=== PATIENT | female | born 1935 | race Caucasian/White ===

== ENCOUNTER 2017-02-10 16:28 | Inpatient (IN) | payer OTHER ==
[~2017-02-10] VITALS: Ht 167.6 cm; Wt 63.5 kg
--- NOTE | ~2017-02-10 | DS ---
[place], [place] DISCHARGE SUMMARY NAME: ARNOLD FALLON UNIT #: [id number] ROOM: 427 DOCTOR: BARBY GARCIA MD BIRTHDATE: [birth year] DOS: 02/12/2017 DISCHARGE DIAGNOSES: 1. Severe peripheral arterial disease, which is diffuse, patient going for an arteriogram to [facility] with Dr. Grajeda. 2. Venous stasis and cellulitis involving both lower extremities. 3. Old age, advanced disability and failure to thrive. 4. Benign essential hypertension. 5. Iron deficiency anemia. 6. Gastroesophageal reflux disease and esophagitis. 7. Mixed hyperlipidemia. HOSPITAL COURSE: The patient presented to the Emergency Department with increased redness and pain in her legs, which was finally considered to be related to drug rash and patient also has venous stasis dermatitis and exfoliative skin in her lower extremities. The patient was evaluated by Infectious Disease specialist for this. Severe peripheral arterial disease, for which patient being taken to [facility] by Dr. Grajeda for an arteriogram study for tomorrow. Old age, advanced disability and failure to thrive with difficulty with ambulation. The patient worked with physical therapy. Benign essential hypertension with controlled blood pressures. Iron deficiency anemia. The patient continued on iron supplements. Anemia with hemoglobin of 9.4. No leukocytosis on CBC. Blood cultures were negative. DISCHARGE MANAGEMENT: The patient is being transferred to [facility] under care of Dr. Grajeda for arterial studies for her severe peripheral arterial disease. DISCHARGE MEDICATIONS: Lamisil cream 1% b.i.d., ____ 250 mg daily for 7 days, Pepcid 40 mg a day, Coreg 25 mg b.i.d., Tylenol p.r.n., omeprazole 40 mg a day, hydroxyzine 25 mg 3 times a day, iron 325 mg b.i.d., hydrochlorothiazide 25 mg a day, lisinopril 20 mg a day, Aquaphor ointment to the skin of both lower extremities. [place], [place] DISCHARGE SUMMARY NAME: ARNOLD FALLON UNIT #: [id number] ROOM: 427 DOCTOR: BARBY GARCIA MD BIRTHDATE: [birth year] BARBY GRACIA MD CM:MANDY [id number] BARBY GARCIA MD 02/13/17 2154 interface
--- NOTE | ~2017-02-10 | PR ---
[place], [place] PROGRESS NOTE NAME: ARNOLD FALLON UNIT #: [id number] ROOM: 427 DOCTOR: BARBY GARCIA MD BIRTHDATE: [birth year] DOS: 02/12/2017 SUBJECTIVE: The patient is feeling better. OBJECTIVE: GENERAL APPEARANCE: The patient is alert and oriented x 3, in no visible distress. VITAL SIGNS: Blood pressure 110/54, heart rate of 83 beats per minute, afebrile. HEENT AND NECK: Exam within normal limits. CARDIOVASCULAR SYSTEM: Heart rate is regular in rate and rhythm. S1 and S2 normally audible. LUNGS: Clear to auscultation. ABDOMEN: Soft, nontender. No obvious organomegaly. Bowel sounds are present. EXTREMITIES: Bilateral erythema involving both legs and thighs with extensive peeling of the skin. IMPRESSION: 1. The patient with bilateral cellulitis involving both lower extremities, being treated with IV Ancef. I am getting Infectious Disease and Surgical consults and Wound Care is also following. 2. Old age, advanced disability and failure to thrive. The patient is waiting to be transferred to [facility] facility. 3. Benign essential hypertension, being treated. The patient was on lisinopril. The blood pressures are being monitored. 4. Iron deficiency anemia, treated with supplements. Hemoglobin at 9.2 . BARBY GARCIA MD CM:PNTRANS [id number] BARBY GARCIA MD 02/12/17 1539 interface
--- NOTE | ~2017-02-10 | WRIGHTHP ---
[place], [place] PATIENT HISTORY AND PHYSICAL EXAM NAME: ARNOLD FALLON [facility] #: [id number] UNIT #: [id number] ROOM: 427 DOCTOR: BARBY GARCIA MD BIRTHDATE: [birth year] DOS: HISTORY OF PRESENT ILLNESS: The patient is a 81-year-old female with a past medical history of; 1. Benign essential hypertension. 2. Mixed hyperlipidemia. 3. Gallstones. 4. Anemia of chronic disease. The patient presented to the Emergency Department with increasing pain and redness in her legs. The patient says she lives by herself with some help and her sister helps her. The patient was found to have bilateral cellulitis in both legs with some skin changes and recommended for admission and further management. The patient also had leukocytosis. After admission, the patient has the same complaints. No chest pain, no shortness of breath, no GI or urinary symptoms. REVIEW OF SYSTEMS: LUNGS: No increasing shortness of breath or wheezing. GASTROINTESTINAL: No nausea, vomiting, diarrhea or constipation. CARDIOVASCULAR: No palpitations or chest pains. FAMILY HISTORY: Noncontributory. ALLERGIES: No known drug allergies. HOME MEDICATIONS: Lisinopril, hydrochlorothiazide, ____, amlodipine, hydroxyzine, omeprazole, Coreg, ____ and Lamisil. PHYSICAL EXAMINATION: GENERAL: Alert and oriented x 3, very weak. HEENT AND NECK: Extraocular movements are intact. Sclerae are anicteric. Oral mucosa is moist and clean. No obvious facial weakness. Neck is supple without any lymphadenopathy. No thyromegaly. No JVD. No carotid arterial bruits. LUNGS: Clear to auscultation. No wheezing. No rhonchi. CARDIOVASCULAR SYSTEM: Heart rate is regular in rate and rhythm. S1 and S2 normally audible. No significant murmur or any other abnormal cardiac sounds. ABDOMEN: Soft, nontender. No obvious organomegaly. Bowel sounds are present. No obvious herniation. EXTREMITIES: Bilateral erythema and redness and peeling skin on both legs going all the way up into the thighs. CENTRAL NERVOUS SYSTEM: Alert and oriented x 3. Cranial nerves II-XII are intact. Speech is normal. The patient is able to move all extremities. Normal muscle strength. Deep tendon reflexes are equal on both sides. Plantars were downgoing. IMPRESSION AND PLAN: 1. Bilateral lower extremity cellulitis, to be treated with IV Ancef and followed by Podiatry and wound care nurse. 2. Old age with advance disability and failure to thrive. The patient to work with physical therapy and also go for group home facility for continued [place], [place] PATIENT HISTORY AND PHYSICAL EXAM NAME: ARNOLD FALLON UNIT #: [id number] ROOM: [facility] DOCTOR: JOSE MERCADO,BRABY Tate BIRTHDATE: [birth year] treatment. 3. Benign essential hypertension. I will continue lisinopril/hydrochlorothiazide along with amlodipine and monitor blood pressures. 4. Iron deficiency anemia. The patient to be continued on iron supplements. BARBY GARCIA MD CM:HISPHYS:PATIENT HISTORY AND PHYSICAL EXAMINATION 31 11 BARBY GARCIA MD 02/11/171910 interface
--- NOTE | ~2017-02-10 | PR ---
[place], [place] PROGRESS NOTE NAME: ARNOLD FALLON [facility] #: [id number] UNIT #: [id number] ROOM: 427 DOCTOR: LIZZY DOOLEY DPM BIRTHDATE: [birth year] DOS: 02/13/2017 SUBJECTIVE: The patient was seen for followup of cellulitis of lower legs. OBJECTIVE: The arterial studies revealed significant peripheral arterial disease with waveform analysis demonstrating high-grade stenotic inflow stenosis, diffuse infiltrate, angle arteriosclerosis without focal discrete high grade stenosis. Clinically, there is decreased erythema. There is venous stasis bilateral lower legs still noted. Pedal pulses nonpalpable. The paronychia, fourth right toe is stable. ASSESSMENT: Paronychia fourth right toe, peripheral vascular disease with stenosis and venous insufficiency. PLAN: Evaluation and management. I consult ____ for vascular consultation. No compressive dressings will be applied to the leg due to the severe PVD. Continue Bactroban dressing to the fourth right toe and the patient will be seen for followup. LIZZY DOOLEY DPM CM:DOUG [id number] LIZZY DOOLEY DPM 02/13/17 1434 interface
--- NOTE | ~2017-02-10 | CON ---
[place], [place] REPORT OF CONSULTATION NAME: ARNOLD FALLON UNIT #: [id number] ROOM: 427 DOCTOR: LIZZY DOOLEY DPM BIRTHDATE: [birth year] DOS: 02/11/2017 SUBJECTIVE: The patient presents with chief complaint of elongated thickened nails of both feet, causing pain, cellulitis and increased swelling of both lower extremities which has been noted over the past several weeks. ALLERGIES: Denied. No known allergies. PREVIOUS SURGICAL HISTORY: None. SOCIAL HISTORY: Denies illicit drug use, smoking or alcohol. MEDICAL HISTORY: Cellulitis of both legs, dehydration, malnutrition, lower extremity examination, pedal pulses nonpalpable bilateral lower extremity, decreased hair growth bilateral, decreased skin temperature, bilateral foot extremely elongated, thickened, crumbly, yellow painful nails 1 through 5 bilateral foot with the nails on the right foot 3-5 inches in length and incubated on to the surrounding digits. There is subungual drainage noted to the fourth right toe upon nail debridement with discomfort. No deep sinus tract noted. There is venous stasis, erythema, edema both lower extremities noted with pain. ASSESSMENT: PVD, venous stasis, cellulitis, venous insufficiency bilateral lower leg, onychomycosis 1-5 bilateral, perionychia fourth right toe, onychocryptosis, onychogryphosis of the nails bilateral. PLAN: Evaluation and management. Debrided the nails 1 through 5 of both feet, apply Bactroban and dressing daily to the nail bed fourth right toe. Ordered both arterial and venous Doppler bilateral lower extremity before proceeding with any compressive dressing such as Unna boot to rule out DVT or underlying PVD, which may make the patient a known candidate for Unna boot application. We will see the patient again tomorrow for followup and review of the testing. LIZZY DOOLEY DPM CM:CONSTR:REPORT OF CONSULTATION 1238 02/12/17 0010 interface
--- NOTE | ~2017-02-10 | PR ---
[place], [place] PROGRESS NOTE [id number] UNIT #: [id number] ROOM: 427 DOCTOR: YOKO MORA PRIYA BIRTHDATE: [birth year] DOS: 02/12/2017 SUBJECTIVE: The patient is followed for increased swelling in bilateral lower extremities with cellulitis. ALLERGIES: No known drug allergies. PAST SURGICAL HISTORY: None. PAST MEDICAL HISTORY: Cellulitis, dehydration, malnutrition. LOWER EXTREMITY PHYSICAL EXAMINATION: VASCULAR: DP and PT pulses are nonpalpable bilaterally. Decreased hair growth noted to bilateral lower extremities. Mild pitting edema noted in bilateral lower extremities. There is substantial erythema noted to bilateral lower extremities. NEUROLOGIC: Protective sensation intact to bilateral lower extremities. Epicritic sensation intact in bilateral lower extremities. Decreased muscle tone noted to bilateral lower extremities. MUSCLE STRENGTH: 3/5 muscle strength noted to bilateral lower extremities. Mild pain on palpation noted in bilateral lower extremities. DERMATOLOGIC: There is diffuse erythema noted to bilateral lower extremities. There also appears to be a flaky dry skin noted to bilateral lower extremities. No open wounds noted. No interdigital macerations. ASSESSMENT: Peripheral vascular disease, venous stasis cellulitis, venous insufficiency to bilateral lower extremities. PLAN: Reviewed ultrasounds. The venous ultrasound demonstrated no DVT noted to the bilateral lower extremities. Arterial duplex demonstrated severe stenosis to bilateral lower extremities. Dr. Grajeda has been consulted for Vascular Surgery to evaluate. We will wait upon vascular recommendations prior to wound care recommendations. [place], [place] PROGRESS NOTE NAME: V[facility]YLARNOLD Hamilton [id number] UN[facility] #: [id number] ROOM: 427 DOCTOR: YOKO MORA PRIYA BIRTHDATE: [birth year] CHHAYA MORA DPM CM:PNTRANS 25 [phone] CHHAYA MORA DPM 02/13/17 0421 interface
--- NOTE | ~2017-02-10 | CON ---
[place], [place] REPORT OF CONSULTATION NAME: ARNOLD FALLON UNIT #: [id number] ROOM: 427 DO[facility] BIR[facility]: [birth year] DOS: PRIMARY CARE PHYSICIAN: Dr. King. SUBJECTIVE: Case discussed with Dr. Gaffney and Dr. Dooley. Dr. Dooley and Dr. Gaffney recommended for peripheral arteriogram and possible revascularization to improve the ____ in both lower extremities and marked diminished perfusion in lower extremities both with diffuse disease. Report is enclosed. The patient came with bilateral cellulitis with discoloration of lower extremities below the knee. Apparently, it is going on for the last several weeks. So probably, Richardson classification 5 with tissue damage. The drainage, the skin wound and discoloration continues to progress ____ came in and no fever, no chills. The patient also has history of gastroesophageal reflux disease, iron deficiency anemia, and hypertension. Hemoglobin is 9.4. SOCIAL HISTORY: The patient does not smoke or drink. No alcohol or drug abuse. ALLERGIES: The patient does not have any allergies. The patient has been on lisinopril, omeprazole, carvedilol, iron, amlodipine, and the patient will have baby aspirin and Plavix going forward and also discontinue amlodipine because of peripheral edema and her skin changes and put her on statin because of diffuse atherosclerosis. REVIEW OF SYSTEMS: HEENT: Unremarkable. CARDIOVASCULAR: As described. Now denies any chest pain but peripheral arterial disease consistent with edema. Denies any shortness of breath. No syncope. PHYSICAL EXAMINATION: VITAL SIGNS: Blood pressure 101/50, afebrile, heart rate is 75. NECK: No jugular venous distention. LUNGS: Diminished breath sounds in bases. HEART: S1, S2 regular. ABDOMEN: Soft. SKIN: Diffuse changes in the skin of lower extremities with discharge from the skin and the wound, both thighs. LABORATORY DATA: Electrolytes were unremarkable. Sodium 130, low. Creatinine is 1.3, probably chronic kidney disease stage 3 with BUN 49 and GFR is 39 markedly diminished. Hemoglobin is 9.1, recent one. No DVT in the lower extremities, so the changes in the skin in the lower extremities is unrelated to the deep vein thrombosis, mostly peripheral arterial disease. Could not get the ankle brachial index now, marked diminished flow below the popliteal and also in the outlet vessels. Inlet vessels are fairly good but outlet vessels have the worst flow and severe peripheral arterial disease considered. No discrete lesions could be described. No pedal or posterior tibial pulses. Popliteal pulses also not optimal but both the femoral pulses are felt. [place], [place] REPORT OF CONSULTATION NAME: ARNOLD FALLON UNIT #: [id number] ROOM: 427 DOCTOR: STEPH MERCADO [facility] BIRTHDATE: [birth year] DIAGNOSIS: Severe peripheral arterial disease, outlet vessels. I have discussed with the patient options, procedures, complications, morbidity, and mortality risk explained for angiogram revascularization. We will get the landscaper get involved also and optimize the medical therapy. We will continue the current therapy. Thank you very for asking me to see the patient. I will follow the patient. JUSTINO CHOI MD CM:CONSTR:REPORT OF CONSULTATION 1709 02/14/17 0755 interface LIZZY DOOLEY DPM, BARBY GAFFNEY MD and KARLOS KING
[2017-02-10 16:37] VITALS: BP 119/50
--- NOTE | 2017-02-10 17:18 | NUR ---
THE BANDAGES WERE REMOVED FOR VIEWING OF THE LEGS AND FEET
[2017-02-10 17:24] LABS: BASO % 0.2 % (0.0-1.0); EOS # 0.3 10*3/uL (0.0-0.4); EOS % 2.6 % (1.0-4.0); HEMATOCRIT 26.8 % (37.0-47.0); HEMOGLOBIN 9.1 g/dl (12.0-16.0); LYMPH # 1.2 10*3/uL (1.3-4.4); LYMPH % 9.8 % (27.0-41.0); MEAN CELL VOLUME 90.2 fl (81.0-99.0); MEAN CORPUSCULAR HGB 30.6 pg (27.0-31.0); MEAN PLATELET VOLUME 8.8 fl (9.6-12.3); MONO # 0.9 10*3/uL (0.1-1.0); MONO % 7.9 % (3.0-9.0); NEUT # 9.3 10*3/uL (2.3-7.9); PLATELET COUNT AUTOMATED 290 10*3/uL (130-400); RED BLOOD COUNT 2.97 10*6/uL (4.10-5.10); RED CELL DISTRI WIDTH 13.8 % (0-14.5); WHITE BLOOD COUNT 11.7 10*3/uL (4.8-10.8)
[2017-02-10 17:39] LABS: ALBUMIN 2.8 gm/dl (3.1-4.5); CREATININE 1.32 mg/dL (0.55-1.02); MAGNESIUM 2.5 mg/dL (1.5-2.1); POTASSIUM 3.9 mmol/L (3.5-5.1); TOTAL PROTEIN 7.1 gm/dL (6.4-8.2)
[2017-02-10 18:12] LABS: BILIRUBIN NEGATIVE (NEGATIVE); BLOOD NEGATIVE (NEGATIVE); CLARITY CLEAR (CLEAR); COLOR YELLOW (YELLOW); GLUCOSE NEGATIVE (NEGATIVE); KETONE NEGATIVE (NEGATIVE); LEUKO ESTERASE NEGATIVE (NEGATIVE); NITRITE NEGATIVE (NEGATIVE); PH 5.5 (5.0-9.0); UROBILINOGEN 0.2 E.U./dl (0.2-1.0)
[2017-02-10 18:27] LABS: WBC 0-2 wbc/hpf (0-5)
[2017-02-10 18:35] VITALS: BP 112/50
--- NOTE | 2017-02-10 18:41 | NUR ---
THE CLINDAMYCIN WAS NOT AVAILABEL IN THE ED PYXIX. THE PATIENT WAS TAKEN TO THE FLOOR AND THE PHARMACY NOTFIEID THEY NEEDED THE MEDICATION. RECIEVING NURSE NOTIFIED
[2017-02-10 18:43] VITALS: BP 140/56
--- NOTE | 2017-02-10 18:45 | NUR ---
A 81, admitted to , under the services of Dr. JOSE MERCADO,BARBY Tate with a diagnosis of CELLULITIS. Chief complaint is CELLULITIS OF BLE. Patient arrived via CART WITH RN from ER. Monitor applied. Initial assessment completed. Vital signs taken and recorded. DR. JOSE MERCADO,BARBY Tate notified of admission to the unit. Orders received. See assessment for past medical history, medications and allergies. Patient and/or family oriented to unit. [facility] visitation policy reviewed. Clothing/patient valuable form completed. DUGLAS ORELLANA
[2017-02-10] MEDS ORDERED: LISINOPRIL20 MG PO (18:59)
[2017-02-10] MEDS ORDERED: HYDR25T PO (19:00)
[2017-02-10] MEDS ORDERED: OMEPRAZOLE40 MG PO (19:01)
[2017-02-10] MEDS ORDERED: COREG25 MG PO (19:02)
[2017-02-10] MEDS ORDERED: FEROSUL325 MG PO (19:02)
[2017-02-10] MEDS ORDERED: AMLODIPINE BESY10 MG PO (19:03)
--- NOTE | 2017-02-10 19:03 | NUR ---
MEDS VERIFIED WITH HOME MED LIST
--- NOTE | 2017-02-10 20:02 | NUR ---
DR. DOOLEY CONSULT PHONED IN FOR CELLULITITS TO LEGS AND TOE NAILS.
--- NOTE | 2017-02-10 20:02 | NUR ---
DR. HULL CONSULT PHONED IN, SEE NEW ORDERS.
[2017-02-10 20:10] VITALS: BP 116/55
[2017-02-11] VITALS: BP 139/63
--- NOTE | 2017-02-11 06:13 | NUR ---
PRN TYLENOL GIVEN FOR PAIN RATED 8/10 IN ANKLES AND LOWER LEGS. WILL MONITOR
--- NOTE | 2017-02-11 06:15 | NUR ---
PATIENT CANNOT SWALLOW LARGE PILLS. PREFERS THEM CRUSHED. DID NOT SHOW ANY SIGNS OF DISCOMFORT DURING MORNING MED PASS, JUST STATED HOW SHE TAKES LARGE PILLS.
[2017-02-11 08:00] VITALS: BP 101/50
--- NOTE | 2017-02-11 08:30 | NUR ---
Behavioral Health Professional in to talk to patient. Patient states lives at HOME IN [facility] ALONE with . There are 0 steps in the home. Physician: DR KING Pharmacy: [facility] health services: NONE SISTER DOES WOUND CARE ON HER LEGS Patient's level of ADLs: MODERATE ASSIST Patient has working utilities: YES DME: [facility] Follow-up physician's appointment after d/c: PREFERS TO MAKE HER OWN Does patient want to access PORTAL?: Discharge plan . CRISTIAN CHEUNG PT AGREES TO SNF STAY AND CHOOSES [facility] AND [facility].
[2017-02-11 12:00] VITALS: BP 88/46
--- NOTE | 2017-02-11 14:08 | NUR ---
PATIENT GIVEN PRN TYLENOL FOR LOWER LEG PAIN RATING 4/10
--- NOTE | 2017-02-11 14:15 | NUR ---
OT EVALUATION COMPLETED AT BS. OT MODERATE COMPLEXITY, DETERMINED BY CHART REVIEW AND EVALUATION.
--- NOTE | 2017-02-11 14:28 | NUR ---
PHYSICAL THERAPY PAtient evaluated on 4, full evaluation to follow. Continue with PT as per plan of care with fall, wounds to (b)LE and acute debilty as well as mod (A)+ for molility precautions. Will require SNF for impaired mobility in order to return to home alone at [facility]. PAtient is high complexity via chart review, tests and evaluation: 62071. Thank you for this referral. evangelina Polk,PT
[2017-02-11 16:00] VITALS: BP 72/43
[2017-02-11 18:55] VITALS: BP 102/54
[2017-02-11 20:00] VITALS: BP 86/40
--- NOTE | 2017-02-11 21:21 | NUR ---
TYLENOL GIVEN FOR ANKLE PAIN RATED 9/10. WILL MONITOR.
--- NOTE | 2017-02-11 22:00 | NUR ---
TYLENOL EFFECTIVE, PATIENT ASLEEP WITH RESPIRATIONS >12.
[2017-02-12] VITALS: BP 84/40
--- NOTE | 2017-02-12 05:25 | NUR ---
TYLENOL GIVEN FOR ANKLE PAIN RATED 9/10. WILL MONITOR.
--- NOTE | 2017-02-12 05:30 | NUR ---
PATIENT HAD MOLD GROWING IN HER UMBILICUS. IT WAS BROUGHT TO MY ATTENTION WHILE PATIENT WAS BEING BATHED. AREA WAS CLEANED WITH SOAP AND WATER, DRYED, AND SKIN WAS INTACT. WILL MONITOR.
--- NOTE | 2017-02-12 06:00 | NUR ---
TYLENOL EFFECTIVE. PATIENT ASLEEP WITH RESPIRATIONS >12
[2017-02-12 06:57] LABS: BASO % 0.2 % (0.0-1.0); EOS # 0.5 10*3/uL (0.0-0.4); EOS % 5.6 % (1.0-4.0); HEMATOCRIT 28.2 % (37.0-47.0); HEMOGLOBIN 9.2 g/dl (12.0-16.0); LYMPH # 0.8 10*3/uL (1.3-4.4); LYMPH % 9.2 % (27.0-41.0); MEAN CELL VOLUME 93.1 fl (81.0-99.0); MEAN CORPUSCULAR HGB 30.4 pg (27.0-31.0); MEAN CORPUSCULAR HGB CONC 32.6 g/dl (33.0-37.0); MONO # 0.6 10*3/uL (0.1-1.0); MONO % 6.9 % (3.0-9.0); NEUT # 6.6 10*3/uL (2.3-7.9); NEUT % 77.6 % (47.0-73.0); PLATELET COUNT AUTOMATED 285 10*3/uL (130-400); RED BLOOD COUNT 3.03 10*6/uL (4.10-5.10); RED CELL DISTRI WIDTH 13.8 % (0-14.5); WHITE BLOOD COUNT 8.5 10*3/uL (4.8-10.8)
--- NOTE | 2017-02-12 07:48 | NUR ---
Patient referred to [facility], waiting on acceptance and precert.
[2017-02-12 08:00] VITALS: BP 110/54
--- NOTE | 2017-02-12 11:00 | NUR ---
PHYSICAL THERAPY Nurse working with Charis this first AM therapy visit. DELLA HUMPHREY HARNESS RACING HANDICAPPER.
--- NOTE | 2017-02-12 11:01 | NUR ---
PHYSICAL THERAPY Back to see Mrs Lorenzo this AM said she would try. Transfer supine/sit with verbal cueing, up into sitting balance with MOD A X 1, sitting balance X 7 min with CGA X 1. Sit/stand and up working on standing balance X 3, with MOD A X 1, verbal cueing to hold her balance each stand. Pt said that she's not walking at this time. Pt back supine, call light and bed alarm on. DELLA HUMPHREY VP RESPIRATORY.
[2017-02-12 12:00] VITALS: BP 81/42
--- NOTE | 2017-02-12 12:21 | NUR ---
DR. HULL CONTACTED FOR CONSULT AT THIS TIME, NO NEW ORDERS.
--- NOTE | 2017-02-12 12:34 | NUR ---
DR. BYERS CONTACTED FOR CONSULT AT THIS TIME, NO NEW ORDERS.
--- NOTE | 2017-02-12 14:18 | NUR ---
VASYLARNOLD Hamilton [id number] Please refer to the physician's history and physical for past medical history, comorbid conditions, and allergies. Diagnosis: CELLULITIS OF BOTH LOWER EXTREMITIES MALNUTRITION Connor Score: 14,MODERATE RISK WOUND DESCRIPTIONS: Location of the wound: LLE lateral Thickness: Full Size: 5.3cm x 2.5cm x 0.1cm Tunneling: none Undermining: none Sinus Tract: none Presence of Exudate: serosanguineous Amount: Light Color: Yellow Odor: None Periwound Skin Appearance: Hot Wound edges: approximated Pain (associated with wound): none at time of assessment How does patient state this happened? pt unsure how this happened Pedal faint to palpaltion bilaterally. BLE red and warm to touch. BLE dry flaky skin noted. Location of the wound: LLL medial Thickness: Full Size: 0.6cm x 0.5cm x 0.1cm Tunneling: none Undermining: none Sinus Tract: none Presence of Exudate: serosanguineous Amount: Light Color: Vanegas Odor: None Periwound Skin Appearance: Hot Wound edges: approximated Pain (associated with wound): none at time of assessment How does patient state this happened? pt unable to stated how this happened Surface the patient is resting on: Isoflex SKIN PREVENTION RECOMMENDATION: 1. Pressure redistribution support surface as appropriate 2. Elevate heels 3. Remove boots/TEDS every shift and reapply 4. Head of bed 30 degrees as tolerated 5. Assess nutrition and hydration 6. Manage moisture 7. Avoid the use of containment devices while in bed 8. Use absorptive products on surfaces limit layers of linens on bed 9. Turn and reposition every 1-2 hours in bed and every 1 hour in chair as tolerated 10. Weight shifts every 15 minutes while up in chair 11. Offloading with pillows or device to keep heels elevated off bed 12. Monitor skin at least every shift 13. Inspect under medical devices twice a day WOUND TREATMENT RECOMMENDATIONS: Consult podiatry.
--- NOTE | 2017-02-12 14:44 | NUR ---
Hospital exemption completed online in hens system
[2017-02-12 16:00] VITALS: BP 102/46
[2017-02-12 20:00] VITALS: BP 115/57
[2017-02-13] VITALS: BP 126/56
[2017-02-13 08:00] VITALS: BP 127/60
[2017-02-13 08:05] LABS: BASO % 0.4 % (0.0-1.0); EOS # 0.4 10*3/uL (0.0-0.4); EOS % 5.4 % (1.0-4.0); HEMATOCRIT 28.6 % (37.0-47.0); HEMOGLOBIN 9.4 g/dl (12.0-16.0); LYMPH # 0.9 10*3/uL (1.3-4.4); LYMPH % 11.7 % (27.0-41.0); MEAN CELL VOLUME 91.7 fl (81.0-99.0); MEAN CORPUSCULAR HGB 30.1 pg (27.0-31.0); MEAN CORPUSCULAR HGB CONC 32.9 g/dl (33.0-37.0); MEAN PLATELET VOLUME 8.9 fl (9.6-12.3); MONO # 0.6 10*3/uL (0.1-1.0); MONO % 7.7 % (3.0-9.0); NEUT # 5.8 10*3/uL (2.3-7.9); NEUT % 74.2 % (47.0-73.0); PLATELET COUNT AUTOMATED 282 10*3/uL (130-400); RED BLOOD COUNT 3.12 10*6/uL (4.10-5.10); RED CELL DISTRI WIDTH 13.5 % (0-14.5); WHITE BLOOD COUNT 7.8 10*3/uL (4.8-10.8)
--- NOTE | 2017-02-13 08:43 | NUR ---
PHYSICAL THERAPY Charis seen this AM 1:1 for her therapy session. Pt is afraid of falling. Transfer supine/sit CGA X 1, sitting balance supervision x 1, X 6 min working on sitting balance. Sit/stand X 4, with MOD LONG WINDER TENDER X 1, with sitting rest after each standing balance. Charis said that she couldnot march in place. Standing balance, side step with much verbal cueing for her balance and falling backwards every standing balance, cueing to lean forward for her balance. Pt back supine in bed, call light, bed alarm on. DELLA HUMPHREY FISHING MANAGER.
--- NOTE | 2017-02-13 09:32 | NUR ---
DR. CHOI CONSULTED AT THIS TIME, NO NEW ORDERS.
[2017-02-13 12:00] VITALS: BP 101/52
--- NOTE | 2017-02-13 13:34 | NUR ---
Precert has been obtained for patient to go to [facility], patient can go when medically stable for discharge.
--- NOTE | 2017-02-13 14:34 | NUR ---
DR. CHOI CALLED IN REGARDS TO CONSULT, WILL SEE PT. TODAY NO NEW ORDERS.
[2017-02-13 16:00] VITALS: BP 110/52
--- NOTE | 2017-02-13 17:15 | NUR ---
DR. CHOI IN TO SEE PT. WANTS PT. TRANSFERED TO [place] FOR PROCEDURE.
--- NOTE | 2017-02-13 18:50 | NUR ---
PT. IS REFUSING TRANSFER TO [place] FOR PROCEDURE STATING SHE WOULD NOT MAKE IT IF DONE, ALL I HAVE BEEN EATING IS BABY FOOD.
[2017-02-13 20:00] VITALS: BP 99/50
--- NOTE | 2017-02-13 21:00 | NUR ---
ATTEMPTED TO EDUCATE THE PATIENT AT THIS TIME PERTAINING TO ARTERIOGRAM THAT DR. CHOI WANTS HER TRANSFERRED TO [place] TO PERFORM. THE PATIENT STATES THAT SHE WOULD NOT MAKE IT THROUGH THE PROCEDURE BECAUSE ALL SHE EATS IS BABY FOOD AND SHE WOULD IN SURGERY. THIS NURSE STATED THAT THE PROCEDURE WAS NOT THAT INVASIVE AND ATTEMPTED TO EXPLAIN THE PROCESS TO THE PATIENT. THE PATIENT CONTINUED TO STATE THAT SHE WOULD AND THAT SHE DIDN'T WANT TO DO IT. THIS NURSE STATED THAT DR. CHOI REALLY WANTED HER TO HAVE THIS DONE AND THAT HE IS GOING TO HAVE DR. GARCIA AND DR. DOOLEY SPEAK WITH THE PATIENT IN REGARDS TO THE PROCEDURE. THE PATIENT STATED THAT SHE WOULD STILL NOT CHANGE HER MIND.
[2017-02-14] VITALS: BP 111/61
[2017-02-14 06:41] LABS: BASO % 0.3 % (0.0-1.0); EOS # 0.6 10*3/uL (0.0-0.4); EOS % 7.9 % (1.0-4.0); HEMATOCRIT 29.6 % (37.0-47.0); HEMOGLOBIN 9.6 g/dl (12.0-16.0); LYMPH # 1.1 10*3/uL (1.3-4.4); LYMPH % 15.3 % (27.0-41.0); MEAN CELL VOLUME 90.8 fl (81.0-99.0); MEAN CORPUSCULAR HGB 29.4 pg (27.0-31.0); MEAN CORPUSCULAR HGB CONC 32.4 g/dl (33.0-37.0); MONO # 0.6 10*3/uL (0.1-1.0); MONO % 8.7 % (3.0-9.0); NEUT # 4.7 10*3/uL (2.3-7.9); NEUT % 67.2 % (47.0-73.0); PLATELET COUNT AUTOMATED 284 10*3/uL (130-400); RED BLOOD COUNT 3.26 10*6/uL (4.10-5.10); RED CELL DISTRI WIDTH 13.5 % (0-14.5); WHITE BLOOD COUNT 6.9 10*3/uL (4.8-10.8)
--- NOTE | 2017-02-14 06:52 | NUR ---
SPOKE WITH DR. CHOI AT THIS TIME. DR. CHOI CALLED IN AND ASKED FOR AN UPDATE ON THE PATIENT. THIS NURSE STATED THAT THE PATIENT IS STILL ADEMATELY REFUSING TO GO TO [place] FOR THE PROCEDURE. THIS NURSE EXPLAINED TO DR. CHOI THAT THE PROCEDURE WAS EXPLAINED TO THE PATIENT AND THIS NURSE BELIEVES THE PATIENT DOESNT UNDERSTAND. THIS NURSE ALL STATED TO DR. CHOI THAT THIS NURSE SPOKE WITH THE PATIENTS NIECE THIS MORNING AND EXPLAINED THE PROCEDURE TO HER AND THE FAMILY IS GOING TO COME IN AND SPEAK WITH THE PATIENT AND ATTEMPT TO GET HER TO AGREE.
--- NOTE | 2017-02-14 07:28 | NUR ---
PATIENT AND FAMILY IN AGREEANCE TO PATIENT BEING TRANSFERRED TO [place] FOR ANGIOCATH. PATIENT DIDN'T UNDERSTAND WHAT THE PROCEDURE ENTAILED. DR. CHOI NOTIFIED
[2017-02-14 08:00] VITALS: BP 120/62; BP 123/61
--- NOTE | 2017-02-14 08:01 | NUR ---
[facility] CALLED FOR REPORT ON PT. REPORT GIVEN TO CHARGE NURSE. PT PACKET AND D/C COMPLETED.
--- NOTE | 2017-02-14 08:09 | NUR ---
FAMILY REFUSED PHOTOGRAPHS ON D/C.
--- NOTE | 2017-02-14 08:27 | NUR ---
Transfer Out, from ROOM 427- Stable This patient, ARNOLD FALLON, 81, , [id number], [id number], The patient's condition is stable. The reason for transfer is need higher level of care. The CONSULTING PHYSICIAN, DR Jovany CHOI MADE DECISION TO TRANSFER PT OUT TO [facility] The receiving facility has space and qualified personnel to care for the patient, and has agreed to accept the patient. Proper equipment and trained personnel have been arranged. The mode of transport is ground. The agency is [facility]. Copies of the medical record have been forwarded to the receiving facility, including: - name, address, hospital number, age, next of kin - presenting problem - history of injury, past medical history - treatment, medications & route, fluid type & volume - lab and xray findings, films - physical findings - vital signs -- prehospital, emergency, pre-transfer - preliminary diagnosis - status/condition - emergency medical services record - consent for transfer - authorization for record release - name of any involved physicians -- responsive or not - name and address of referring physician - name of contact physician at receiving facility - name of accepting physician at receiving facility Nursing report has been given to [facility] PROJECT SCHEDULER. Valuables include , and were given to DUGLAS MEJIA
--- NOTE | 2017-02-14 11:17 | NUR ---
PHYSICAL THERAPY CO-SIGN I approve of the Phyical Therapy notes written above. MARIN TORRES PT
== END 2017-02-14 08:25 | disposition short-term general hospital (02) | DRG 603 ==
LOC: ED 16:28 → 4E 17:58 → EDHOLD 17:58 → 4E 18:06
PROVIDERS: Nurse Practitioner Family; ADMIT Internal Medicine
PROC: 0HBRXZZ Excision of Toe Nail, External Approach (ICD-10-PCS; principal; 2017-02-11)
PROC: 0HBRXZZ Excision of Toe Nail, External Approach (ICD-10-PCS; 2017-02-11)
PROC: 0HBRXZZ Excision of Toe Nail, External Approach (ICD-10-PCS; 2017-02-11)
PROC: 0HBRXZZ Excision of Toe Nail, External Approach (ICD-10-PCS; 2017-02-11)
PROC: 0HBRXZZ Excision of Toe Nail, External Approach (ICD-10-PCS; 2017-02-11)
DX: L03.116 Cellulitis of left lower limb (principal); E46 Unspecified protein-calorie malnutrition; E86.0 Dehydration; I73.9 Peripheral vascular disease, unspecified; E87.1 Hypo-osmolality and hyponatremia; B35.1 Tinea unguium; L03.115 Cellulitis of right lower limb; B35.3 Tinea pedis; D50.9 Iron deficiency anemia, unspecified; E78.2 Mixed hyperlipidemia; K21.0 Gastro-esophageal reflux disease with esophagitis; I10 Essential (primary) hypertension; R62.7 Adult failure to thrive; L03.031 Cellulitis of right toe; I87.2 Venous insufficiency (chronic) (peripheral); L60.0 Ingrowing nail; L60.2 Onychogryphosis; Z79.899 Other long term (current) drug therapy; Z68.27 Body mass index [BMI] 27.0-27.9, adult

== ENCOUNTER 2017-04-10 10:30 | Inpatient (IN) | payer OTHER ==
[~2017-04-10] VITALS: Ht 167.6 cm; Wt 58.2 kg
--- NOTE | ~2017-04-10 | DS ---
[place], [place] DISCHARGE SUMMARY NAME: ARNOLD FALLON UNIT #: [id number] ROOM: 521 DOCTOR: CORIN COLVIN MD BIRTHDATE: [birth year] DOS: 04/14/2017 DIAGNOSES: 1. Syncope, possibly vasovagal. 2. Hyponatremia with prerenal azotemia from medications. 3. Adult failure to thrive. 4. Benign hypertension. 5. Chronic stasis dermatitis. 6. Gastroesophageal reflux disease. 7. Iron deficiency anemia. 8. Right eye conjunctivitis. DISCHARGE MEDICATIONS: Iron 325 daily, amlodipine 10 daily, lisinopril 20 daily, aspirin 81 mg daily, Tylenol 1000 q.8h. p.r.n., ammonium lactate solution all over body twice a day, omeprazole 20 daily, bisacodyl 10 daily p.r.n. for constipation, tobramycin eyedrops to right eye twice a day for 5 days. Please do a basic metabolic panel in a week, stopped new medications were Coreg and hydrochlorothiazide. HOSPITAL COURSE: This patient is 81 years old, comes in with a syncopal episode. She was found to be slightly bradycardic with evidence of prerenal azotemia and hyponatremia. The patient was placed on IV fluids and medication adjustments made and after that the patient has done very well. Carotid Doppler was negative. MRI of the brain shows chronic small vessel disease. Echocardiogram was ordered. At the time of dictation, I do not have the results. The patient's blood pressures have been very well controlled after the meds have been changed. Continue to follow that up as an outpatient. Please also add clonidine 0.1 mg daily p.r.n. if the systolic goes above 160 and the diastolic goes above 100. Her diet is regular. Wound care can be continued as there is very small wound left on her right lower leg. The redness and the swelling has subsided. [place], [place] DISCHARGE SUMMARY NAME: ARNOLD FALLON UNIT #: [id number] ROOM: 521 DOCTOR: CORIN COLVIN MD BIRTHDATE: [birth year] CORIN COLVIN MD CM:MANDY [id number] CORIN COLVIN MD 04/14/17 1634 interface
--- NOTE | ~2017-04-10 | WRIGHTHP ---
[place], [place] PATIENT HISTORY AND PHYSICAL EXAM [id number] UN[facility] #: [id number] ROOM: 521 DOCTOR: CORIN COLVIN MD BIRTHDATE: [birth year] DOS: 04/10/2017 HISTORY OF PRESENT ILLNESS: The patient is 81-year-old. The patient comes in with complaints that she passed out. She was sitting in a chair after exercise at [facility] and she developed some mild dizziness and she passed out. The patient states that she had just done some exercise and was slightly tired, but denies having any chest pains or palpitations, does not have any urinary symptoms, any diarrhea. PAST MEDICAL HISTORY: Significant for: 1. Chronic peripheral vascular disease with stasis dermatitis and poorly healing wounds for which she was at the [facility] for wound care. 2. Adult failure to thrive. 3. Benign hypertension. 4. Gastroesophageal reflux disease. 5. Iron deficiency anemia. MEDICATIONS: That she is on are amlodipine 10 daily, aspirin 81 daily, Coreg 25 b.i.d., iron 325 daily, hydrochlorothiazide 25 daily, lisinopril 20 daily, omeprazole 20 daily, bisacodyl p.r.n. Fleets enema p.r.n. SOCIAL HISTORY: Nonsmoker, does not use any alcohol. PHYSICAL EXAMINATION: GENERAL: She is awake and alert and oriented. VITAL SIGNS: Blood pressure is 128/56, pulse of 74, respirations 20, temperature 97.7. LUNGS: Clear. HEART: Regular. ABDOMEN: Soft, scaphoid. EXTREMITIES: Evidence of stasis dermatitis. No open wounds noted. SKIN: A few excoriations noted all over her body from dry skin. NEUROLOGIC: No neurological deficits. LABORATORY DATA: At the time of admission, WBC count is 8.8, hemoglobin 10.4, hematocrit 30.4, platelets 251. Comprehensive: Glucose 95, BUN 25, creatinine 0.98. Electrolytes were normal. ASSESSMENT AND PLAN: 1. This is a patient who presents with syncopal episode, possibly from dehydration. She also has hyponatremia from hydrochlorothiazide, which has been discontinued and is placed on slow IV hydration, repeat labs to be ordered. 2. Possibility of small vessel disease of the brain causing syncopal episode. Carotid Doppler and an echocardiogram will be ordered as well as monitoring. 3. Benign hypertension, controlled. Readjust antihypertensives. 4. Chronic iron deficiency anemia. Supplements could be ordered. [place], [place] PATIENT HISTORY AND PHYSICAL EXAM NAME: ARNOLD FALLON UNIT #: [id number] ROOM: [facility] DOCTOR: CORIN COLVIN MD BIRTHDATE: [birth year] CORIN COLVIN MD CM:HISPHYS:PATIENT HISTORY AND PHYSICAL EXAMINATION [id number] CORIN COLVIN MD 04/11/17 1002 interface
--- NOTE | ~2017-04-10 | PR ---
[place], [place] PROGRESS NOTE NAME: ARNOLD FALLON UNIT #: [id number] ROOM: 521 DOCTOR: CORIN COLVIN MD BIRTHDATE: [birth year] DOS: SUBJECTIVE: The patient states that she feels okay, does not have any complaints today. OBJECTIVE: VITAL SIGNS: Blood pressure is 131/68, pulse of 80, respirations 18, temperature 98.4. LUNGS: Clear. HEART: Regular. ABDOMEN: Soft. EXTREMITIES: Without any edema. LABORATORY DATA: Yesterday were all within normal limits. ASSESSMENT AND PLAN: 1. Prerenal azotemia with hyponatremia from medications. Blood work has normalized. 2. Chronic stasis dermatitis. stable. 3. Plan is to discharge her back to [facility] today. CORIN COLVIN MD CM:PNTRANS [id number] CORIN COLVIN MD 04/14/17 0907 interface
--- NOTE | ~2017-04-10 | PR ---
[place], [place] PROGRESS NOTE NAME: ARNOLD FALLON UNIT #: [id number] ROOM: 521 DOCTOR: CORIN COLVIN MD BIRTHDATE: [birth year] DOS: 04/13/2017 SUBJECTIVE: The patient is doing fine without any complaints. OBJECTIVE: VITAL SIGNS: Graphic trend shows a pressure of 137/69, pulse of 76, respirations 20, temperature 98.0. LUNGS: Clear. HEART: Regular. ABDOMEN: Soft, scaphoid. EXTREMITIES: Without any edema. ASSESSMENT AND PLAN: 1. The patient with a syncopal episode, most likely from hyponatremia and prerenal azotemia from diuretics, which were discontinued. Labs are back to normal this morning. Work up for syncope included an MRI of the brain, carotid Doppler and an echocardiogram. Echo report is not available. The other two have come back negative. 2. Adult failure to thrive, to go back to alf tomorrow once a precertification is obtained. CORIN COLVIN MD CM:PNTRANS [id number] CORIN COLVIN MD 04/15/17 0602 interface
--- NOTE | ~2017-04-10 | PR ---
[place], [place] PROGRESS NOTE NAME: ARNOLD FALLON [facility] #: [id number] UNIT #: [id number] ROOM: 521 DOCTOR: LIZZY DOOLEY DPM BIRTHDATE: [birth year] DOS: 04/12/2017 SUBJECTIVE: The patient is a 81-year-old female for followup of chronic venous insufficiency, venous leg ulceration, left and xerosis bilateral. OBJECTIVE: Superficial fissuring, venous stasis with venous insufficiency noted, distal lateral lower leg, granulating. No signs of purulent drainage or foul odor. ASSESSMENT: Venous insufficiency, chronic venous leg ulcer, xerosis bilateral. PLAN: Evaluation and management. Continue local wound care. The patient is being discharged later today and we will follow up accordingly on an outpatient basis. LIZZY DOOLEY DPM CM:DOUG [id number] LIZZY DOOLEY DPM 04/12/17 1830 interface
--- NOTE | ~2017-04-10 | PR ---
[place], [place] PROGRESS NOTE NAME: ARNOLD FALLON UNIT #: [id number] ROOM: 521 DOCTOR: CORIN CLOVIN MD BIRTHDATE: [birth year] DOS: SUBJECTIVE: The patient is doing fine without any complaints. Denies any chest pains, palpitations. She is sitting up, eating her breakfast. OBJECTIVE: VITAL SIGNS: Blood pressure is 136/65, pulse of 76, respirations 20, temperature 97.3. LUNGS: Clear. HEART: Regular. ABDOMEN: Soft. EXTREMITIES: No edema. Chronic stasis dermatitis along with extreme dry skin. ASSESSMENT AND PLAN: 1. Syncopal episode, possibly from ____ prerenal azotemia and hyponatremia. The meds were adjusted and last blood work showed BUN and creatinine and sodium to have almost normalized. 2. Adult failure to thrive. The patient to go to [facility] today. 3. Chronic stasis dermatitis. The patient was seen by Dr. Díaz's group yesterday and was advised continued management. CORIN COLVIN MD CM:PNTRANS [phone] CORIN COLVIN MD 04/12/17 0904 interface
--- NOTE | ~2017-04-10 | CON ---
[place], [place] REPORT OF CONSULTATION NAME: KAROLINEGABRIELLAARNOLD NAIR UNIT #: [id number] ROOM: 521 DOCTOR: KEVIN BABCOCKJUAN FRANCISCO BIRTHDATE: [birth year] DOS: 04/11/2017 SUBJECTIVE: This 81-year-old female is seen for evaluation of her legs and feet. She has a history of chronic PAD and stasis dermatitis. She presented yesterday from a care home because she passed out. She states her legs are doing better than they have in the past. No recent infections in her legs or feet. PAST MEDICAL HISTORY: Positive for chronic venous insufficiency, PAD of bilateral lower extremities, failure to thrive, benign hypertension, gastroesophageal reflux disease, iron deficiency anemia. ALLERGIES: She has no known drug allergies. CURRENT MEDICATIONS: Include lisinopril, Feosol, ammonium lactate to her feet, Norvasc, Prilosec, Tylenol. PHYSICAL EXAMINATION: Upon lower extremity physical examination, pedal pulses are decreased bilaterally. There is chronic pigment changes noted with mild edema and varicosities present. Negative Homans sign is seen bilaterally. CFT is delayed. Skin temperature is cool at the toes. Sensation appears intact and symmetrical bilaterally. Muscle strength is essentially full. She has some stiffness with range of motion of pedal joints. She has areas of dry skin throughout both lower extremities, lower leg, feet and ankles with no cracks, fissures or rashes, no blisters or macerations. She has a superficial open wound noted at the distal lateral portion of the left lower leg that is fairly clean. There is no purulent drainage or malodor, no erythema or increased temperature, no signs of infection. ASSESSMENT: Peripheral arterial disease, chronic venous insufficiency, venous leg ulcer, left and xerosis. PLAN: Consult was performed. Continue with ammonium lactate to both legs and feet daily. I applied a dry dressing to the small wound on the left lower leg. Do daily dressing changes. The patient states she may be discharged tomorrow. We will follow her up tomorrow for reevaluation or sooner if there are any issues. Thank you for the opportunity to take part in care of this patient. [place], [place] REPORT OF CONSULTATION NAME: ARNOLD FALLON UNIT #: [id number] ROOM: 521 DOCTOR: JUAN FRANCISCO BROWN DPM BIRTHDATE: [birth year] JUAN FRANCISCO BROWN DPM CM:CONSTR:REPORT OF CONSULTATION 1215 04/11/17 2232 interface
[~2017-04-10 10:30] MED LIST: AMLODIPINE BESY10 MG PO; COREG25 MG PO; FEROSUL325 MG PO; HYDR25T PO; LISINOPRIL20 MG PO; OMEPRAZOLE20 M2 PO
[2017-04-10 10:40] VITALS: BP 126/66
[2017-04-10 11:54] LABS: BASO # 0.1 10*3/uL (0.0-0.1); BASO % 0.6 % (0.0-1.0); EOS # 0.8 10*3/uL (0.0-0.4); HEMATOCRIT 30.4 % (37.0-47.0); HEMOGLOBIN 10.4 g/dl (12.0-16.0); LYMPH # 1.1 10*3/uL (1.3-4.4); LYMPH % 12.9 % (27.0-41.0); MEAN CELL VOLUME 88.1 fl (81.0-99.0); MEAN CORPUSCULAR HGB 30.1 pg (27.0-31.0); MEAN CORPUSCULAR HGB CONC 34.2 g/dl (33.0-37.0); MEAN PLATELET VOLUME 8.6 fl (9.6-12.3); MONO # 0.6 10*3/uL (0.1-1.0); MONO % 6.3 % (3.0-9.0); NEUT # 6.2 10*3/uL (2.3-7.9); NEUT % 70.6 % (47.0-73.0); PLATELET COUNT AUTOMATED 251 10*3/uL (130-400); RED BLOOD COUNT 3.45 10*6/uL (4.10-5.10); RED CELL DISTRI WIDTH 13.7 % (0-14.5); WHITE BLOOD COUNT 8.8 10*3/uL (4.8-10.8)
[2017-04-10 12:08] LABS: ALBUMIN 3.2 gm/dl (3.1-4.5); ALKALINE PHOSPHATASE 108 U/L (45-117); BUN 25 mg/dl (7-24); CHLORIDE 94 mmol/L (98-107); CREATININE 0.98 mg/dL (0.55-1.02); POTASSIUM 3.9 mmol/L (3.5-5.1); SGOT/AST 15 IU/L (3-35); SGPT/ALT 11 U/L (12-78); SODIUM 131 mmol/L (136-145)
[2017-04-10 12:10] LABS: BILIRUBIN NEGATIVE (NEGATIVE); BLOOD NEGATIVE (NEGATIVE); COLOR YELLOW (YELLOW); GLUCOSE NEGATIVE (NEGATIVE); KETONE NEGATIVE (NEGATIVE); LEUKO ESTERASE NEGATIVE (NEGATIVE); NITRITE NEGATIVE (NEGATIVE); PH 6.5 (5.0-9.0); UROBILINOGEN 0.2 E.U./dl (0.2-1.0)
[2017-04-10 12:18] LABS: CLARITY CLEAR (CLEAR); EPITHELIAL CELLS 0-2; WBC 0-2 wbc/hpf (0-5)
[2017-04-10 13:24] VITALS: BP 124/62
--- NOTE | 2017-04-10 13:30 | NUR ---
IV SITE PROVIDED BY EMS IS NOT IN A VEIN, BUT RATHER TAPED TO PT'S SKIN. NEW SITE WILL BE INITIATED.
[2017-04-10 13:53] VITALS: BP 141/69
--- NOTE | 2017-04-10 13:53 | NUR ---
A 81, admitted to [facility], under the services of CORIN Saldaña MD with a diagnosis of SYNCOPE. Chief complaint is DIZZY. Patient arrived via stretcher from ER. Monitor applied. Initial assessment completed. Vital signs taken and recorded. CORIN SALDAÑA MD notified of admission to the unit. Orders received. See assessment for past medical history, medications and allergies. Patient and/or family oriented to unit. [facility] visitation policy reviewed. Clothing/patient valuable form completed. RONIT BRIAN
[2017-04-10] MEDS ORDERED: ASPIR 8181 MG PO (14:22)
[2017-04-10] MEDS ORDERED: TYLENOL EXTRA500 MG PO (14:23)
[2017-04-10] MEDS ORDERED: Lac-Hydrin 12%340 GM T (14:26)
[2017-04-10] MEDS ORDERED: MILK OF MA400 MG/51 PO (14:28)
[2017-04-10] MEDS ORDERED: FLEET ENEMA 13133 ML R (14:29)
[2017-04-10] MEDS ORDERED: DULCOLAX10 M1 R (14:30)
--- NOTE | 2017-04-10 15:37 | NUR ---
PATIENT TAKEN TO XRAY AND THEN WILL BE TRANPORTED TO 521. NURSE TO NURSE REPORT GIVEN.
[2017-04-10 16:00] VITALS: BP 118/58; BP 136/70
--- NOTE | 2017-04-10 19:30 | NUR ---
PATIENT IS RESTING IN BED. PATIENT HAS REDDENED AND FLAKY SKIN ON THE LOWER EXTREMITIES. PATIENT DENIES ANY PAIN AT THIS TIME, BUT REPORTS THAT LEGS HURT UPON AMBULATION. PATIENT DENIES ANY SOB ON RA, NO CP, OR DIZZINESS UPON STANDING. REORIENTED TO THE ROOM, CALL LIGHT WITHIN REACH. PLEASANT UPON ASSESSMENT. SEE SHIFT ASSESSMENT.
[2017-04-10 20:00] VITALS: BP 110/76
--- NOTE | 2017-04-10 23:53 | NUR ---
PATIENT IS RESTING IN BED. ENCOURAGED REPOSITIONING ON LEFT OR RIGHT SIDE. LE REDDENED AND DRY. DRY COVERING APPLIED. PATIENT DENIES ANY DISCOMFORT OR PAIN AT THIS TIME. PATIENT HAS NO FURTHER REQUESTS. CALL LIGHT IS WITHIN REACH. SEE ASSESSMENT.
[2017-04-11] VITALS: BP 120/53
--- NOTE | 2017-04-11 06:32 | NUR ---
PATIENT RESTING COMFORTABLY IN THE BED. PATIENT DENIES ANY PAIN OR DISCOMFORT THROUGHOUT THE NIGHT. PATIENT DENIES ANY DIZZINESS UPON STANDING. PATIENT HAS REDDENED, DRY SKIN ON BOTH LE THAT ARE COVERED AND LOTION APPLIED. HOB ELEVATED, HEELS ELEVATED, CALL LIGHT WITHIN REACH. SEE ASSESSMENT.
[2017-04-11 07:17] LABS: BUN 18 mg/dl (7-24); CHLORIDE 98 mmol/L (98-107); CREATININE 0.69 mg/dL (0.55-1.02); POTASSIUM 3.7 mmol/L (3.5-5.1); SODIUM 131 mmol/L (136-145)
[2017-04-11 08:00] VITALS: BP 128/56
--- NOTE | 2017-04-11 08:00 | NUR ---
EXCHANGE UNDERWRITING CONSULTANT VS. COMES FROM [facility] AND PLANS TO RETURN. WILL NEED PRECERT TO RETURN.
--- NOTE | 2017-04-11 08:28 | NUR ---
Patient comes from [facility] short term. She will require PT/OT evals and precert to return.
[2017-04-11 11:00] VITALS: BP 106/54
--- NOTE | 2017-04-11 11:12 | NUR ---
PHYSICAL THERAPY PAtient evaluated on 5, full evaluation to follow. Continue with PT as per plan of care with fall, vertigo and acute debility precautions. Will require return to SNF for impaired mobility as prior. PAtient is moderate complexity via chart review, tests and evaluation [id number]. Thank you for this referral. Liyah Polk,PT
[2017-04-11 12:00] VITALS: BP 106/54
--- NOTE | 2017-04-11 13:11 | NUR ---
Occupational Therapy evaluation completed this date on 5 with full eval to follow. Precautions include fall risk,vertigo,poor w/w safety, low complexity level. Recommend OT per POC and SNF to enable return home at indep level. Thank you for this referral. Mary Omalley OTR/l
--- NOTE | 2017-04-11 14:51 | NUR ---
PHYSICAL THERAPY Patient was seen this pm 1:1 for therapy, supine in bed with continuous IV treatment. Patient transfers sup to sit EOB, Min A x 1 maintaining upright seated posture with v/c for visual fixation technique to promote clarity. Patient performed seated AROM, B LE therex, all planes x15 reps each to increase LE strength. Patient stated she had enough for the day and returned to supine in bed, remaining with call light, telephone, tray table and bed alarm for safety. Will continue per POC as tolerated to return to PLOF. Morgan Cooper, BROKERAGE MANAGER
[2017-04-11 16:00] VITALS: BP 153/86
[2017-04-11 20:00] VITALS: BP 117/57
--- NOTE | 2017-04-11 21:12 | NUR ---
PATIENT RESTING COMFORTABLY IN THE BED. PATIENT ENCOURAGED TO REPOSITION FROM SIDE TO SIDE. LE ARE REDDENED AND FLAKY BUT REMAIN INTACT, NO DRAINAGE. PATIENT DENIES ANY PAIN OR DISCOMFORT. PATIENT IS ABLE TO AMBULATE WITH MINIMAL ASSIST. NO FURTHER REQUESTS AT THIS TIME, PATIENT WAS COOPERATIVE UPON ASSESMENT. CALL LIGHT IS WITHIN REACH, BED ALARM ACTIVATED. PATIENT IS MONITORED. SEE SHIFT ASSESSMENT.
[2017-04-12] VITALS: BP 109/53
--- NOTE | 2017-04-12 04:00 | NUR ---
PT SLEEPING IN BED. RESP-EASY AND REGULAR. CALL LIGHT IN REACH.
--- NOTE | 2017-04-12 06:00 | NUR ---
SLEEPING IN BED. RESP-EASY AND REGULAR. IVF INFUSING WITH NO PROBLEM. CALL LIGHT IN REACH. BED ALARM ON.
[2017-04-12 08:00] VITALS: BP 136/65
[2017-04-12 12:00] VITALS: BP 124/59
[2017-04-12 16:00] VITALS: BP 101/54
[2017-04-12 20:00] VITALS: BP 111/54
[2017-04-13] VITALS: BP 133/60
[2017-04-13 06:48] LABS: BASO # 0.1 10*3/uL (0.0-0.1); BASO % 1.1 % (0.0-1.0); EOS # 1.2 10*3/uL (0.0-0.4); EOS % 19.6 % (1.0-4.0); HEMATOCRIT 32.8 % (37.0-47.0); HEMOGLOBIN 11.2 g/dl (12.0-16.0); LYMPH # 1.1 10*3/uL (1.3-4.4); LYMPH % 18.4 % (27.0-41.0); MEAN CELL VOLUME 88.6 fl (81.0-99.0); MEAN CORPUSCULAR HGB 30.3 pg (27.0-31.0); MEAN CORPUSCULAR HGB CONC 34.1 g/dl (33.0-37.0); MEAN PLATELET VOLUME 8.7 fl (9.6-12.3); MONO # 0.5 10*3/uL (0.1-1.0); MONO % 8.3 % (3.0-9.0); NEUT # 3.2 10*3/uL (2.3-7.9); NEUT % 52.3 % (47.0-73.0); PLATELET COUNT AUTOMATED 264 10*3/uL (130-400); RED CELL DISTRI WIDTH 13.6 % (0-14.5); WHITE BLOOD COUNT 6.1 10*3/uL (4.8-10.8)
[2017-04-13 07:27] LABS: CHLORIDE 103 mmol/L (98-107); CREATININE 0.62 mg/dL (0.55-1.02); POTASSIUM 4.1 mmol/L (3.5-5.1); SODIUM 137 mmol/L (136-145)
[2017-04-13 07:34] LABS: BUN 8 mg/dl (7-24)
[2017-04-13 08:00] VITALS: BP 137/69
--- NOTE | 2017-04-13 09:54 | NUR ---
MEDICATED PER JUL. ASSISTED TO BATHROOM. BACK TO BED WITHOUT DIFFICULTY. RESPS EASY ON RA. VOICES NO OTHER NEEDS AT THIS TIME.
[2017-04-13 12:00] VITALS: BP 132/75
--- NOTE | 2017-04-13 13:27 | NUR ---
RESTING IN BED WATCHING TV. RESPS EASY ON RA. VOICES NO NEEDS AT THIS TIME. CALL LIGHT IN REACH.
--- NOTE | 2017-04-13 15:49 | NUR ---
Patient resting quietly with no c/o discomfort. Respirations easy and regular. Vital signs stable. No overt distress. CALL LIGHT IN REACH. DUGLAS ORELLANA
[2017-04-13 16:00] VITALS: BP 137/81
[2017-04-13 20:00] VITALS: BP 124/64
--- NOTE | 2017-04-13 20:00 | NUR ---
RESTING IN BED WITH EYES CLOSED; AROUSES EASILY FOR ASSESSMENT. IV FLUIDS INFUSING INTO LEFT WRIST WITHOUT DIFFICULTY; SITE ASYMPTOMATIC. NO DISTRESS NOTED. CALL LIGHT WITHIN REACH.
[2017-04-14] VITALS: BP 131/68
--- NOTE | 2017-04-14 00:30 | NUR ---
ASSIST OF 1 UP TO BATHROOM.
--- NOTE | 2017-04-14 06:00 | NUR ---
TOOK PO MEDICATION WITHOUT DIFFICULTY. VOICES NO C/O AT THIS TIME. CALL LIGHT WITHIN REACH.
[2017-04-14 08:00] VITALS: BP 136/70
--- NOTE | 2017-04-14 12:15 | NUR ---
PATIENT SEEN 1:1 OT 17 MINUTES THIS DATE. PATIENT IDENTIFIED BY NAME AND DATE OF . PATIENT REPORTS FATIGUE THIS DATE. PATIENT WILLING TO COMPLETE TO TOLERANCE. PATIENT COMPLETED LB DRESSING DONNING B NON SLIP SOCKS CGA SEATED EOB WITH EDUCATION PROPER FOOT WEAR FOR FALL PREVENTION. PATIENT COMPLETED SIT TO STAND FROM BED CGA WITH MIN VERBAL CUES PROPER HAND PLACEMENT. COMPLETED FUNCTIONAL AMBULATION USE FWW TO BATHROOM CGA. COMPLETED GROOMING STANDING AT SINK CGA WITH VERBAL CUES TO INITIATE TASK. PATIENT REQUESTED TO LIE BACK DOWN TO REST SECONDARY C/O FATIGUE SBA SIT TO SUPINE. NO FURTHER NEEDS VERBALIZED. CALL LIGHT WITHIN REACH. TABBY CARLOS/Ester
--- NOTE | 2017-04-14 13:04 | NUR ---
Discharge instructions reviewed with patient/family. Patient receptive and verbalizes understanding. Follow-up care arranged. Written instructions given to patient/family. DUGLAS ORELLANA
--- NOTE | 2017-04-14 13:12 | NUR ---
PHYSICAL THERAPY Patient was supine in bed upon therapist for am visit and seen 1:1 this morning. Patient presented with continuous IV treatment and transfers SBA x 1, ambulating with use of wh walker, 150'x 1, demonstrating good eddie and no LOB. Patient did receive v/c for proper step sequence and walker safety during turns, returning to supine in bed following treatment. Patient remained in bed with call light, telephone and tray table. Will continue per POC as tolerated. Morgan Cooper, SHEET CATCHER
--- NOTE | 2017-04-14 14:37 | NUR ---
PHYSICAL THERAPY CO-SIGN I approve of the Phyical Therapy notes written above. MARIN TORRES PT
--- NOTE | 2017-04-15 07:32 | NUR ---
OCCUPATIONAL THERAPY CO-SIGN I approve of the Occupational Therapy notes written above. FRANCISCO DOBSON OTR/Ester
== END 2017-04-14 13:01 | disposition home or self-care (01) | DRG 312 ==
LOC: ED 10:30 → EDHOLD 13:19 → 5E 13:19 → ICCU 13:27 → 5E 15:19
PROVIDERS: Emergency Medicine; ADMIT Internal Medicine
DX: R55 Syncope and collapse (principal); E87.1 Hypo-osmolality and hyponatremia; I67.89 Other cerebrovascular disease; L97.829 Non-pressure chronic ulcer of other part of left lower leg with unspecified severity; R62.7 Adult failure to thrive; I10 Essential (primary) hypertension; I73.9 Peripheral vascular disease, unspecified; D50.9 Iron deficiency anemia, unspecified; K21.9 Gastro-esophageal reflux disease without esophagitis; R79.89 Other specified abnormal findings of blood chemistry; L85.3 Xerosis cutis; H10.11 Acute atopic conjunctivitis, right eye; I87.2 Venous insufficiency (chronic) (peripheral)

== ENCOUNTER → 2018-04-27 | Outpatient (CLI) | payer MEDICAID ==
[~2018-04-27] MED LIST changes: +ASPIR 8181 MG PO; +DULCOLAX10 M1 R; +FLEET ENEMA 13133 ML R; +Lac-Hydrin 12%340 GM T; +MILK OF MA400 MG/51 PO; +TYLENOL EXTRA500 MG PO
[2018-04-27 08:40] LABS: HEMATOCRIT 34.9 % (37.0-47.0); HEMOGLOBIN 11.3 g/dl (12.0-16.0); MEAN CELL VOLUME 92.3 fl (81.0-99.0); MEAN CORPUSCULAR HGB 29.9 pg (27.0-31.0); MEAN CORPUSCULAR HGB CONC 32.4 g/dl (33.0-37.0); MEAN PLATELET VOLUME 8.7 fl (9.6-12.3); RED BLOOD COUNT 3.78 10*6/uL (4.10-5.10); RED CELL DISTRI WIDTH 14.2 % (0-14.5)
[2018-04-27 09:00] LABS: ALBUMIN 3.5 gm/dl (3.1-4.5); ALKALINE PHOSPHATASE 111 U/L (45-117); BUN 14 mg/dl (7-24); CHLORIDE 102 mmol/L (98-107); POTASSIUM 3.9 mmol/L (3.5-5.1); SGOT/AST 21 IU/L (3-35); SGPT/ALT 13 U/L (12-78); SODIUM 139 mmol/L (136-145)
== END | disposition home or self-care (01) ==
LOC: LAB 08:05
PROVIDERS: Family Medicine
DX: E87.1 Hypo-osmolality and hyponatremia (principal); R53.83 Other fatigue

== ENCOUNTER → 2019-04-26 | Outpatient (CLI) | payer MEDICAID ==
[2019-04-26 09:10] LABS: HEMATOCRIT 38.2 % (37.0-47.0); HEMOGLOBIN 12.3 g/dl (12.0-16.0); MEAN CELL VOLUME 94.8 fl (81.0-99.0); MEAN CORPUSCULAR HGB 30.5 pg (27.0-31.0); MEAN CORPUSCULAR HGB CONC 32.2 g/dl (33.0-37.0); MEAN PLATELET VOLUME 8.7 fl (9.6-12.3); RED BLOOD COUNT 4.03 10*6/uL (4.10-5.10); RED CELL DISTRI WIDTH 13.2 % (0-14.5); WHITE BLOOD COUNT 6.6 10*3/uL (4.8-10.8)
[2019-04-26 09:15] LABS: CHLORIDE 103 mmol/L (98-107); POTASSIUM 3.5 mmol/L (3.5-5.1); SODIUM 137 mmol/L (136-145)
[2019-04-26 09:26] LABS: ALBUMIN 3.9 gm/dl (3.1-4.5); ALKALINE PHOSPHATASE 110 U/L (45-117); BUN 7 mg/dl (7-24); CHOLESTEROL 254 mg/dL (<200); CREATININE 0.81 mg/dL (0.55-1.02); HDL CHOLESTEROL 126 mg/dl (40-60); LDL CHOLESTEROL 116 mg/dL (9-159); SGOT/AST 27 IU/L (3-35); SGPT/ALT 18 U/L (12-78); TOTAL PROTEIN 7.9 gm/dL (6.4-8.2); TRIGLYCERIDES 60 mg/dl (<150); VLDL CHOLESTEROL 12 mg/dL (6-40)
== END | disposition home or self-care (01) ==
LOC: LAB 08:08
PROVIDERS: Nurse Practitioner Family
DX: E55.9 Vitamin D deficiency, unspecified (principal); E78.00 Pure hypercholesterolemia, unspecified; I10 Essential (primary) hypertension; D64.9 Anemia, unspecified

== ENCOUNTER → 2019-08-02 | Outpatient (CLI) | payer MEDICAID ==
[2019-08-02 09:05] LABS: HEMOGLOBIN 11.7 g/dl (12.0-16.0); MEAN CELL VOLUME 91.6 fl (81.0-99.0); MEAN CORPUSCULAR HGB 30.6 pg (27.0-31.0); MEAN CORPUSCULAR HGB CONC 33.4 g/dl (33.0-37.0); MEAN PLATELET VOLUME 8.9 fl (9.6-12.3); RED BLOOD COUNT 3.82 10*6/uL (4.10-5.10); RED CELL DISTRI WIDTH 13.1 % (0-14.5)
[2019-08-02 09:27] LABS: ALBUMIN 3.6 gm/dl (3.1-4.5); ALKALINE PHOSPHATASE 100 U/L (45-117); BUN 21 mg/dl (7-24); CHLORIDE 103 mmol/L (98-107); POTASSIUM 3.5 mmol/L (3.5-5.1); SGOT/AST 23 IU/L (3-35); SGPT/ALT 15 U/L (12-78); SODIUM 137 mmol/L (136-145); TOTAL PROTEIN 7.4 gm/dL (6.4-8.2)
[2019-08-02 09:39] LABS: CHOLESTEROL 219 mg/dL (<200); CREATININE 0.81 mg/dL (0.55-1.02); HDL CHOLESTEROL 118 mg/dl (40-60); LDL CHOLESTEROL 90 mg/dL (9-159); TRIGLYCERIDES 57 mg/dl (<150); VLDL CHOLESTEROL 11 mg/dL (6-40)
[2019-08-02 10:07] LABS: VITAMIN D, 25-HYDROXY 35.8 ng/mL (30-100)
[2019-08-03 05:03] LABS: HEP B CORE AB, IGM Negative (Negative); HEPATITIS B SURFACE AG Negative (Negative); HEPATITIS C VIRUS ANTIBODY <0.1 s/co (0.0-0.9)
== END | disposition home or self-care (01) ==
LOC: LAB 08:31
PROVIDERS: Family Medicine
DX: I10 Essential (primary) hypertension (principal); E55.9 Vitamin D deficiency, unspecified; K21.9 Gastro-esophageal reflux disease without esophagitis; R05 Cough; R63.4 Abnormal weight loss

== ENCOUNTER 2019-10-05 14:25 | Inpatient (IN) | payer MEDICAID ==
[~2019-10-05] VITALS: Ht 167.6 cm; Wt 52.2 kg
[2019-10-05 14:30] VITALS: BP 127/77
--- NOTE | 2019-10-05 15:18 | NUR ---
PT MEDICATED FOR PAIN, DR DAN PODIATRY RESIDENT CAME DID A DEBRIDEMENT TO HER RT LOWER EXTREMITY AND DI NOT WAIT FOR MY PT TO BE MEDICATED PT WAS IN SO MUCH PAIN.
[2019-10-05 15:25] VITALS: BP 138/88
[2019-10-05 15:25] LABS: BASO # 0.1 10*3/uL (0.0-0.1); BASO % 0.8 % (0.0-1.0); EOS # 0.1 10*3/uL (0.0-0.4); EOS % 1.2 % (1.0-4.0); HEMATOCRIT 37.4 % (37.0-47.0); LYMPH # 0.9 10*3/uL (1.3-4.4); LYMPH % 10.6 % (27.0-41.0); MEAN CELL VOLUME 96.4 fl (81.0-99.0); MEAN CORPUSCULAR HGB 30.2 pg (27.0-31.0); MEAN CORPUSCULAR HGB CONC 31.3 g/dl (33.0-37.0); MEAN PLATELET VOLUME 8.8 fl (9.6-12.3); MONO # 0.6 10*3/uL (0.1-1.0); MONO % 6.7 % (3.0-9.0); NEUT # 6.6 10*3/uL (2.3-7.9); NEUT % 78.9 % (47.0-73.0); PLATELET COUNT AUTOMATED 360 10*3/uL (130-400); RED BLOOD COUNT 3.88 10*6/uL (4.10-5.10); RED CELL DISTRI WIDTH 14.9 % (0-14.5); WHITE BLOOD COUNT 8.4 10*3/uL (4.8-10.8)
[2019-10-05 15:40] LABS: ALBUMIN 2.7 gm/dl (3.1-4.5); CREATININE 1.61 mg/dL (0.55-1.02); POTASSIUM 4.9 mmol/L (3.5-5.1); TOTAL PROTEIN 7.2 gm/dL (6.4-8.2)
--- NOTE | 2019-10-05 16:30 | NUR ---
PT RESTING , STATES HER PAIN ID BETTER .
--- NOTE | 2019-10-05 17:00 | NUR ---
DR DAN FROM PODIATRY AND DRESSED THE WOUND, I WAS NOT TOLD AND UNALE TO TAKE ANY PHOTOS.
[2019-10-05 17:33] VITALS: BP 126/56
--- NOTE | 2019-10-05 19:15 | NUR ---
NURSE TO NURSE REPORT GIVEN TO THIS RN.
[2019-10-05 20:25] VITALS: BP 162/60
--- NOTE | 2019-10-05 20:25 | NUR ---
Time: 2024 A 84 year old female admitted to 4E under services of CORIN SALDAÑA MD. Pt. arrived via stretcher from ER. Chief complaint: brought from residence where she lives alone via ambulance for left leg pain/ wound. wound per patient has been there for about 2 weeks. She has not seen anyone for this. just been putting lotion on it.. Podiatry saw patient in ER debrided wound and put dressing on it. NANNETTE RANDHAWA J
[2019-10-05] MEDS ORDERED: OMEPRAZOLE40 MG PO (23:25)
[2019-10-05] MEDS ORDERED: CENTRUM SILVER1 EACH PO (23:28)
[2019-10-05] MEDS ORDERED: VITAMIN D325 MCG PO (23:28)
[2019-10-06] VITALS: BP 127/57
--- NOTE | 2019-10-06 03:07 | NUR ---
24 HR chart check completed.
[2019-10-06 06:18] LABS: BASO % 0.3 % (0.0-1.0); EOS # 0.1 10*3/uL (0.0-0.4); EOS % 1.5 % (1.0-4.0); HEMATOCRIT 26.3 % (37.0-47.0); LYMPH # 1.1 10*3/uL (1.3-4.4); LYMPH % 16.5 % (27.0-41.0); MEAN CELL VOLUME 95.3 fl (81.0-99.0); MEAN CORPUSCULAR HGB 30.1 pg (27.0-31.0); MEAN CORPUSCULAR HGB CONC 31.6 g/dl (33.0-37.0); MEAN PLATELET VOLUME 9.1 fl (9.6-12.3); MONO # 0.7 10*3/uL (0.1-1.0); MONO % 10.1 % (3.0-9.0); NEUT # 4.7 10*3/uL (2.3-7.9); NEUT % 70.3 % (47.0-73.0); RED BLOOD COUNT 2.76 10*6/uL (4.10-5.10); RED CELL DISTRI WIDTH 15.1 % (0-14.5); WHITE BLOOD COUNT 6.7 10*3/uL (4.8-10.8)
[2019-10-06 06:28] LABS: PLATELET COUNT AUTOMATED 240 10*3/uL (130-400)
--- NOTE | 2019-10-06 06:30 | NUR ---
PROCESS MOLD TECHNICIAN CLARA ASSESSED PATIENT WOUNDS AND THEN CALLED PODIATRY. SEE HER NOTES.
--- NOTE | 2019-10-06 06:31 | NUR ---
Spoke with Dr. Huang regarding left lower extermity dressing he stated to leave dressing in place until him and his attending get here around 0900 and if she could get medicated prior to being seen.
--- NOTE | 2019-10-06 06:34 | NUR ---
FARHADARNOLD NAIR [id number] Please refer to the physician's history and physical for past medical history, comorbid conditions, and allergies. Diagnosis: AMOR CELLULITIS LEG WOUND, LEFT Connor Score: 18,AT RISK WOUND DESCRIPTIONS: Wound Number: 1 Left lower extremity dressing intact at time of assessment. No strikethrough drainage noted at time of assessment. This nurse went to slightly pull back dressing to look at left 5th toe and patient is in tremendous amount of pain at time of assessment. Notify podiatry regarding assessment. Wound Number: 2 Location of the wound: left side of coccyx Type of wound: stage 2 Thickness: Partial Size: 0.5cm x 0.7cm x 0.1cm Tunneling: none Undermining: none Sinus Tract: none Presence of Exudate: Serosanguineous Amount: Light Color: Red Odor: None Periwound Skin Appearance: Normal Wound edges: approximated Pain (associated with wound): none at time of assessment How does patient state this happened? pt stated she is unsure how this happened Wound Number: 3 Location of the wound: right heel Type of wound: DTI Size: 1.5cm x 1.5cm x <0.1cm Tunneling: none Undermining: none Sinus Tract: none Presence of Exudate: none Amount: None Color: Purple, dark red Odor: None Periwound Skin Appearance: Normal Wound edges: approximated Pain (associated with wound): none at time of assessment How does patient state this happened? pt unsure how this happened Surface the patient is resting on: Proform SKIN PREVENTION RECOMMENDATION: 1. Pressure redistribution support surface as appropriate 2. Elevate heels 3. Remove boots/TEDS every shift and reapply 4. Head of bed 30 degrees as tolerated 5. Assess nutrition and hydration 6. Manage moisture 7. Avoid the use of containment devices while in bed 8. Use absorptive products on surfaces limit layers of linens on bed 9. Turn and reposition every 1-2 hours in bed and every 1 hour in chair as tolerated 10. Weight shifts every 15 minutes while up in chair 11. Offloading with pillows or device to keep heels elevated off bed 12. Monitor skin at least every shift 13. Inspect under medical devices twice a day WOUND TREATMENT RECOMMENDATIONS: Podiatry and ID are already on consult. Imaging studies recommend MRI. Cleanse arms, trunk and back with soap and water and apply aqauphor ointment bid. Cleanse right lower extremity with soap and water and apply lac-hydrin bid and avoid application between toes. Heel raiser pro boots to bilateral feet while in bed. Wheelchair cushion when oob. DTI guidelines: Apply sureprep to right heel allow time to dry then cover with optifoam gentle every 2 days and prn for soiling. Continue current dressing change orders to left lower extremity. Stage 2 guidelines: Cleanse left side of coccyx with nss and apply sureprep around the wound hydrogel to wound bed and cover with optifoam gentle every 2 days and prn for soiling.
[2019-10-06 06:43] LABS: BUN 24 mg/dl (7-24); CHLORIDE 113 mmol/L (98-107); CREATININE 0.85 mg/dL (0.55-1.02); SODIUM 141 mmol/L (136-145)
--- NOTE | 2019-10-06 06:50 | NUR ---
CALLED DR. CARUSO AND NOTIFIED INFECTIOUS DISEASE FOR CONSULT GIVEN TO ANSWERING SERVICE.
--- NOTE | 2019-10-06 09:00 | NUR ---
Global Director [employer] And Climate Change in to talk to patient. Patient states lives at home alone with her sister and niece checking in on her daily. There are 0 steps in the home. Physician: Dr. Vargas Castaneda Pharmacy: [facility] Home health services: none Patient's level of ADLs: MINIMAL ASSIST Patient has working utilities: yes DME: walker, cane Follow-up physician's appointment after d/c: she states she has an appointment already scheduled for next month (October) Does patient want to access PORTAL?: no Discharge plan discussed with patient. She lives at home with her sister and niece coming over every morning to get her day started. She states she is independent in her ADLs and ambulates with either a walker or a cane. She lives in [facility]. Discussed home health care services and she denies any home needs at this time. When medically stable she will be discharged to home. She states either her sister or her niece will provide transportation on discharge. ANDERS SINGH
--- NOTE | 2019-10-06 11:28 | NUR ---
DR. SMALL NOTIFIED OF CONSULT.
--- NOTE | 2019-10-06 21:36 | NUR ---
PATIENT RESTING ON BACK, NO S/S DISTRESS ON ROOM AIR, RESPS EASY AND REG. PATIENT VOICES NO NEEDS/NO COMPLAINTS. BED IN LOWEST, LOCKED POS, CALL LIGHT IN REACH.
[2019-10-07] VITALS: BP 131/54
--- NOTE | 2019-10-07 04:06 | NUR ---
PATIENT ASSISTED ONTO BEDPAN. CLEANED AND REPOSITIONED; NO FURTHER NEEDS. WILL CONT TO MONITOR.
[2019-10-07 07:27] LABS: BASO % 0.4 % (0.0-1.0); EOS # 0.3 10*3/uL (0.0-0.4); EOS % 3.9 % (1.0-4.0); HEMATOCRIT 27.9 % (37.0-47.0); LYMPH # 1.1 10*3/uL (1.3-4.4); LYMPH % 15.3 % (27.0-41.0); MEAN CELL VOLUME 94.9 fl (81.0-99.0); MEAN CORPUSCULAR HGB 30.3 pg (27.0-31.0); MEAN CORPUSCULAR HGB CONC 31.9 g/dl (33.0-37.0); MEAN PLATELET VOLUME 8.8 fl (9.6-12.3); MONO # 0.5 10*3/uL (0.1-1.0); MONO % 7.5 % (3.0-9.0); NEUT # 4.9 10*3/uL (2.3-7.9); NEUT % 71.2 % (47.0-73.0); PLATELET COUNT AUTOMATED 250 10*3/uL (130-400); RED BLOOD COUNT 2.94 10*6/uL (4.10-5.10); RED CELL DISTRI WIDTH 14.8 % (0-14.5); WHITE BLOOD COUNT 6.9 10*3/uL (4.8-10.8)
[2019-10-07 08:00] VITALS: BP 134/54
--- NOTE | 2019-10-07 08:30 | NUR ---
Discussed discharge planning with Dr. Torres. Dr. Torres would like patient to go to a SNF for a couple of weeks. Dulite Machine Bluer in to see patient. Discussed short term SNF and she is agreeable. When provided with a list of facilities [facility]. She requested CM speak to her sister regarding SNF. Will reach out to sister. caisson worker notified.
--- NOTE | 2019-10-07 08:43 | NUR ---
NIKI faxed new patient referral to [facility]. Pending completiong of PT/OT Evals and acceptance to facility.
--- NOTE | 2019-10-07 08:56 | NUR ---
NO VOICED COMAPLAINTS. TOLERATED PO MEDS WELL. TRANSPORT IN TO TAKE PT TO [facility] AT THIS TIME.
--- NOTE | 2019-10-07 09:33 | NUR ---
BACK TO ROOM.
--- NOTE | 2019-10-07 09:42 | NUR ---
PREMEDICATED WITH NORCO BEFORE WOUND CHANGE PER REQUEST. SEE MAR.
--- NOTE | 2019-10-07 09:46 | NUR ---
Spoke to sister, Nancy, per patient's request regarding discharge planning and referral to a SNF. Nancy states as long as Charis is ok with it then we are too but Nancy does not want patient to return to [facility] due to personal reasons.
--- NOTE | 2019-10-07 09:57 | NUR ---
OFFICE CALLED. ANGIOGRAM GARCIA SBEEN SETUP FOR 2PM AT [facility]. PT WOULD NEED TO BE THERE BY 1230. CALL BACK NUMBER FOR IS [phone]. CALLED TO INFORM, LEFT MESSAGE. AWAITING CALL BACK.
--- NOTE | 2019-10-07 10:06 | NUR ---
DOES NOT WANT PT TO BE TRANSFERRED OUT TOMORROW FOR ANGIOGRAM. WOULD PREFER FOR IT TO BE DONE OUTPATIENT. 'S OFFICE INFORMED. AWAITING A CALL BACK FROM HIS OFFICE REGARDING RESCHEDULING.
--- NOTE | 2019-10-07 10:36 | NUR ---
PER PT, NORCO WAS EFFECTIVE. PT COMPLAINS OF MINIMAL PAIN TO WOUND SITE FOLLOWING DRESSING. STATES THAT PAIN IS WORST WITH AMBULATION. NO VOICED NEEDS AT THIS TIME. CALL LIGHT IN REACH.
--- NOTE | 2019-10-07 11:30 | NUR ---
Physical Therapy evaluation completed on fourth floor with full evaluation to follow. Recommend physical therapy per plan of care and SNF upon discharge. Thank you for this referral. Emmie Soler PT
[2019-10-07 12:00] VITALS: BP 125/54
--- NOTE | 2019-10-07 12:09 | NUR ---
Discussed discharge planning with Dr. Torres. Pending discharge will be Friday to [facility]. chute worker following.
--- NOTE | 2019-10-07 14:18 | NUR ---
SHIFT CHART CHECK COMPLETED
[2019-10-07 16:00] VITALS: BP 142/63
[2019-10-07 20:00] VITALS: BP 119/51
--- NOTE | 2019-10-07 21:42 | NUR ---
WARM BLANKET GIVEN NO DISTRESS PER PT.
[2019-10-08] VITALS: BP 125/60
--- NOTE | 2019-10-08 03:50 | NUR ---
AWAKE PLACED ON BEDPAN. PATIENT VOIDED 600CC CLEAR YELLOW URINE. PATIENT RETURNING TO SLEEP.
[2019-10-08 05:59] LABS: BASO % 0.5 % (0.0-1.0); EOS # 0.3 10*3/uL (0.0-0.4); EOS % 5.4 % (1.0-4.0); HEMATOCRIT 29.1 % (37.0-47.0); LYMPH # 1.1 10*3/uL (1.3-4.4); LYMPH % 17.3 % (27.0-41.0); MEAN CORPUSCULAR HGB CONC 32.3 g/dl (33.0-37.0); MONO # 0.6 10*3/uL (0.1-1.0); MONO % 9.9 % (3.0-9.0); NEUT # 3.9 10*3/uL (2.3-7.9); NEUT % 64.8 % (47.0-73.0); PLATELET COUNT AUTOMATED 261 10*3/uL (130-400); RED BLOOD COUNT 3.13 10*6/uL (4.10-5.10); RED CELL DISTRI WIDTH 14.9 % (0-14.5); WHITE BLOOD COUNT 6.1 10*3/uL (4.8-10.8)
[2019-10-08 06:02] LABS: BUN 9 mg/dl (7-24); CHLORIDE 107 mmol/L (98-107); CREATININE 0.63 mg/dL (0.55-1.02); POTASSIUM 3.6 mmol/L (3.5-5.1); SODIUM 140 mmol/L (136-145)
--- NOTE | 2019-10-08 06:46 | NUR ---
NORCO GIVEN PER ORDER FOR PAIN D/T WOUND DRESSING CHANGE. SEE MAR.
--- NOTE | 2019-10-08 07:02 | NUR ---
DR. COLVIN HERE DRESSING TO LEFT LEG REMOVED. WOUND CULTURE OBTAINED AND SENT TO LAB. LOSS PREVENTION AND SAFETY MANAGER'S AT BEDSIDE AND ASSISTING WITH DRESSING CHANGE AND ARE REDRESSING LEFT LEG PER WOUND CARE ORDERS.
--- NOTE | 2019-10-08 07:36 | NUR ---
PER PT, PAIN IS BETTER FOLLOWING NORCO. NORCO WAS EFFECTIVE.
--- NOTE | 2019-10-08 07:45 | NUR ---
SHIFT CHART CHECK COMPLETED
[2019-10-08 08:00] VITALS: BP 133/69
--- NOTE | 2019-10-08 08:57 | NUR ---
NIKI spoke with family on this date about [facility] not being able to take patient. Family ok with [facility]. NIKI faxed updates to [facility] on this date. Patient can go to no facility without a rapid covid.
--- NOTE | 2019-10-08 10:05 | NUR ---
IV started left forearm with #22 protective cath after 0 attempts. Site prepped with Chloroprep. Sterile dressing applied. Patient tolerated procedure well. IV infusing at 166.7 cc/hr. MARGO SAUL
--- NOTE | 2019-10-08 10:10 | NUR ---
Occupational Therapy evaluation completed on 4E with full evaluation to follow. Recommend occupational therapy per plan of care and SNF upon discharge. Thank you for this referral. Vida Saavedra OTR/L
--- NOTE | 2019-10-08 10:10 | NUR ---
PHYSICAL THERAPY Patient seen this am 1;1 for therapy visit and was resting supine in bed upon therapist arrival. Patient identified by name / and reports 9/10 L foot pain, presenting with continuos IV treatment. OTR was also present for obseration only this session as patient transfers supine to sit EOB with SBA. Patient performed sit to stand MIN A x 2, with use of wh walker standing support and is WBAT on L LE. Patient demonstrated initial retrograde posture, however was able to self correct following v/c. Patient completed SPT to BSC, wh walker, MIN A, demonstrating increased difficulty with safe step sequence. Patient returned to supine in bed and remained with call light, tray table, telephone and bed alarm for safety. Will continue per POC as tolerated, total treatment time 14 minutes. Morgan Cooper, WAX BLEACHER
--- NOTE | 2019-10-08 11:00 | NUR ---
NORCO GIVEN EARLY FOR PAIN DURING WOUND DRSG CHANGE TO LEFT FOOT AT THIS TIME. PAIN RATED 10/10. OK TO GIVE EARLY VIA VERBAL CONSENT FROM , , AND FOR PAIN. SEE JUL. WILL MONITOR.
--- NOTE | 2019-10-08 11:01 | NUR ---
IN TO SEE PT. WOUND TO LEFT LEG UNDONE FOR ASSESSMENT. PODIATRY RESIDENT IN TO ASSIST WITH WOUND DRSG. NEW BANDAGE PLACED ON.
--- NOTE | 2019-10-08 11:23 | NUR ---
OK TO GIVE NORCO EARLY FOR PAIN DURING WOUND CARE CHANGE BY PODIATRY RESIDENT .
--- NOTE | 2019-10-08 11:46 | NUR ---
NORCO EFFECTIVE PER PT. PAIN TO LEG RATED 3/10. CALL LIGHT IN REACH. WILL MONITOR.
[2019-10-08 12:00] VITALS: BP 117/69
--- NOTE | 2019-10-08 14:22 | NUR ---
Hospital 30 Day exemption completed online in [facility]. No further review required. Copy Placed on Chart.
--- NOTE | 2019-10-08 15:26 | NUR ---
PHYSICAL THERAPY CO-SIGN I approve of the Physical Therapy notes written above. Emmie Soler PT
[2019-10-08 16:00] VITALS: BP 126/79
[2019-10-08 20:00] VITALS: BP 134/65
--- NOTE | 2019-10-08 22:22 | NUR ---
NORCO GIVEN PER ORDER FOR PAIN IN LEFT LEG RATED "6-7". SEE MAR
--- NOTE | 2019-10-08 23:20 | NUR ---
MORGAN HELPING WITH PAIN PER PATIENT. PATIENT RESTING AT THIS TIME.
[2019-10-09] VITALS: BP 116/54
--- NOTE | 2019-10-09 01:32 | NUR ---
24 HR chart check completed.
[2019-10-09 08:00] VITALS: BP 132/44
--- NOTE | 2019-10-09 11:07 | NUR ---
PRN NORCO GIVEN FOR C/O OF BACK PAIN AND STOMACH CRAMPING PAIN RATED 6/10
--- NOTE | 2019-10-09 11:09 | NUR ---
NORCO GIVEN FOR C/O OG LEFT LEG PAIN 09/02
--- NOTE | 2019-10-09 11:50 | NUR ---
PER PT PRN NORCO WAS EFFECTIVE FOR PAIN, PT ALSO HAD A BM THAT HELPED RELIEVE HER STOMACH CRAMPING
[2019-10-09 12:00] VITALS: BP 106/57
[2019-10-09 16:00] VITALS: BP 100/56
--- NOTE | 2019-10-09 19:46 | NUR ---
SLEEPING. EASILY AROUSED FOR SHIFT ASSESSMENT. CALL LIGHT IN REACH. NO VOICED COMPLAINTS. HEEL PROTECTORS ON.
[2019-10-09 20:00] VITALS: BP 95/44
--- NOTE | 2019-10-09 20:21 | NUR ---
TOLERATED PO MEDS FAIRLY WELL. COUGHING NOTED AFTER EACH PILL. NORCO ALSO GIVEN AT THIS TIME FOR C/O LEG PAIN RATED 6/10 AND WORSENS WITH EXERTION. CALL LIGHT IN REACH. WILL MONITOR.
--- NOTE | 2019-10-09 21:16 | NUR ---
PER PT, NORCO WAS EFFECTIVE. PAIN TO LEGS RATED 1/10. CALL LIGHT WITHIN REACH. WILL CONTINUE TO MONITOR.
[2019-10-10] VITALS: BP 107/57
--- NOTE | 2019-10-10 00:31 | NUR ---
SLEEPING. NO SXS OF DISTRESS. CALL LIGHT IN REACH. BED ALARM ON.
--- NOTE | 2019-10-10 01:34 | NUR ---
24HR CHART CHECK COMPLETED
[2019-10-10 08:00] VITALS: BP 137/59
--- NOTE | 2019-10-10 09:26 | NUR ---
PRN NORCO GIVEN FOR C/O BACK PAIN, PT REPOSITIONED
--- NOTE | 2019-10-10 09:58 | NUR ---
PER PT NORCO AND REPOSITIONING WAS EFFECTIVE FOR BACK PAIN
[2019-10-10 12:00] VITALS: BP 113/88
[2019-10-10 20:00] VITALS: BP 117/57
--- NOTE | 2019-10-10 20:12 | NUR ---
NORCO GIVEN ALONG WITH SCHEDULED PM MEDS AT THIS TIME FOR C/O LEG PAIN RATED 6/10. CALL LIGHT IN REACH. PT TALKING ON PHONE WITHOUT DISTRESS. BED ALARM ON.
--- NOTE | 2019-10-10 21:01 | NUR ---
PER PT, NORCO WAS EFFECTIVE. PAIN NOW RATED 1/10. CALL LIGHT WITHIN REACH.
[2019-10-11] VITALS: BP 136/60
--- NOTE | 2019-10-11 01:36 | NUR ---
24HR CHART CHECK COMPLETED
--- NOTE | 2019-10-11 05:13 | NUR ---
GABRIELACO GIVEN FOR C/O BILAT LEG PAIN. CALL LIGHT IN REACH. WILL KALPANA.
--- NOTE | 2019-10-11 06:02 | NUR ---
MORGAN EFFECTIVE PER PT.
[2019-10-11 06:12] LABS: BUN 15 mg/dl (7-24)
--- NOTE | 2019-10-11 07:00 | NUR ---
ASSUMED CARE OF PATIENT AT THIS TIME. PATIENT RESTING WITH CO LEFT LEG PAIN. RESPS EASY AND REGULAR. ASSESSMENT COMPLETE. VSS. CALL LIGHT IN REACH. WILL MONITOR.
[2019-10-11 08:00] VITALS: BP 131/66
--- NOTE | 2019-10-11 08:00 | NUR ---
Discussed discharge planning with Dr. Torres. Patient is to be discharged tomorrow morning to [place] where Dr. Rowe is planning an angiogram. grizzly worker notified patient is to go to [facility] after procedure at [place].
[2019-10-11] MEDS ORDERED: CEFDINIR300 MG PO (08:13)
[2019-10-11] MEDS ORDERED: HYDROCODONE-AC1 EAC1 PO (08:13)
[2019-10-11] MEDS ORDERED: TERBINAFINE250 MG PO (08:13)
--- NOTE | 2019-10-11 08:30 | NUR ---
SPOKE WITH THIS MORNING AND HE STATES IF PATIENT WOULD BE DISCHARGED TO [place] BEFORE GOING TO [place] TOMORROW SHE WOULD HAVE TO BE COVID TESTED. HE STATES IF PT STAYED UNTIL TOMORROW MORNING SHE WOULD NOT HAVE TO BE COVID TESTED AND COULD BE SENT TO THE [place] FROM [place]. DISCUSSED WITH AND SHE STATES THIS IS FINE WITH HER.
--- NOTE | 2019-10-11 08:58 | NUR ---
NIKI faxed clinical updates to [facility] on this date. Once patient is medically stable can be discharged to [facility].
--- NOTE | 2019-10-11 09:00 | NUR ---
Coil Winder Strap in to see patient. No new needs or request at this time. Discussed discharge to [place] in the morning for an angiogram and then [facility] and she verbalizes an understanding.
--- NOTE | 2019-10-11 10:09 | NUR ---
PATIENT MEDICATED WITH PRN TYLENOL FOR CO LEFT LEG PAIN. WILL CHECK EFFECTIVENESS.
--- NOTE | 2019-10-11 11:15 | NUR ---
PATIENT STATES TYLENOL WAS SOMEWHAT EFFECTIVE.
[2019-10-11 12:00] VITALS: BP 133/68
--- NOTE | 2019-10-11 12:54 | NUR ---
[facility] CALLED FOR UPDATE ON PATIENT BEFORE THEY GET HER TOMORROW. NURSE STATED THEY WILL NEED PATIENT AT [facility] BY 10;30 TOMORROW AND ASKED THAT WE HAVE PATIENT PICKED UP BY [phone].
--- NOTE | 2019-10-11 13:00 | NUR ---
PHYSICAL THERAPY Patient seen this am 1;1 for therapy visit and was resting supine in bed upon therapist arrival. Patient identified by name / and reports 4/10 L foot / toe pain. OT admin assistant was present for observation only as patient is WBAT on L LE. Patient transfers supine to sit EOB with MIN A, then sit to stand MIN A, demonstrating very slow initial rise and unsteady balance. Patient able to self correct upon v/c with WBOS and ambulated with use of wh walker, 20'x 2 to bathroom. Patient demonstrated very slow, cautious, "step to" eddie with increased "slouched" posture. Patient needed several v/c's to improve safe step sequence and walker safety / navigation, while returning to supine in bed, MIN A with increased fatigue. Patient was very pleased with her gait progress today and remained in bed with call light, tray table, telephone and bed alarm for safety. Will continue per POC as tolerated, total treatment time 16 minutes. Morgan Cooper, HOME THERAPY CLINICIAN
--- NOTE | 2019-10-11 13:20 | NUR ---
OT NOTE Pt was seen this P.M. 1:1 for 20 minute OT session. Upon arrival pt was supine in bed. Pt identified by name and and had complaints of 4/10 L foot pain. Pt transferred supine to sit EOB with Verena for assist with UB. Sit to stand completed from bed level with Verena and use of w/w for UE support. Functional mobility was then completed to the bathroom with Verena and use of w/w with constant verbal prompts for correcting her posture and walker safety. Pt transferred on to standard commode with Verena and off with modA. Clothing management and toilet hygiene completed with Verena while standing. Functional mobility was then completed back to the EOB where she transferred sit to supine with Verena. Pt was left supine in bed with call light in hand, tray table in place, and bed alarm activated for safety. Continue with rec D/C plan to SNF, MOLLY Burger
--- NOTE | 2019-10-11 13:46 | NUR ---
PT RESTING IN BED. DENIES ANY COMPLAINTS AT THIS TIME. CALL LIGHT IN REACH. WILL MONITOR.
--- NOTE | 2019-10-11 13:56 | NUR ---
MEDICATED WITH PRN NORCO FOR CO LEFT LEG PAIN. WILL ASSESS EFFECTIVENESS. CALL LIGHT IN REACH.
--- NOTE | 2019-10-11 15:09 | NUR ---
PATIENT STATES PAIN MED WAS EFFECTIVE. CALL LIGHT IN REACH. WILL MONITOR.
--- NOTE | 2019-10-11 15:12 | NUR ---
24 HR chart check completed.
[2019-10-11 16:00] VITALS: BP 105/57
--- NOTE | 2019-10-11 19:31 | NUR ---
24 HR chart check completed.
--- NOTE | 2019-10-11 19:56 | NUR ---
PRN TYLENOL GIVEN FOR PAIN OF LEFT LOWER LEG. WILL REASSESS EFFECTIVENESS.
[2019-10-11 20:00] VITALS: BP 112/50
--- NOTE | 2019-10-11 20:56 | NUR ---
PER PT, PRN TYLENOL WAS EFFECTIVE. PT IS RESTING COMFORTABLY IN BED WITH NO SIGNS OF DISTRESS. WILL CONTINUE TO MONITOR PT.
[2019-10-12] VITALS: BP 126/55
--- NOTE | 2019-10-12 00:15 | NUR ---
PATIENT RESTING ON BACK, NO S/S DISTRESS. REG RESPIRATIONS ON ROOM AIR. LT LEG WRAPPED, IS CLEAN AND INTACT. BED IN LOWEST, LOCKED POS, CALL LIGHT WITHIN REACH.
--- NOTE | 2019-10-12 01:29 | NUR ---
[facility] PROVIDED FOR PAIN TO LT LEG. WILL MONITOR.
--- NOTE | 2019-10-12 02:29 | NUR ---
PATIENT RESTING, NORCO APPEARS EFFECTIVE FOR PAIN.
--- NOTE | 2019-10-12 07:46 | NUR ---
MEDICATED WITH PRN PO TYLENOL FOR LEFT LEG PAIN. PREPARING PATIENT FOR TRANSFER TO [facility] FOR ANGIOGRAM WITH DR. SMALL.
--- NOTE | 2019-10-12 08:12 | NUR ---
DISCHARGE WOUND PHOTOS OBTAINED, WOUND DRESSINGS CHANGED PER ORDERS.
--- NOTE | 2019-10-12 09:33 | NUR ---
PATIENT TRANSFERRED TO [facility] BY [facility] AT THIS TIME.
--- NOTE | 2019-10-12 09:41 | NUR ---
NIKI faxed discharge information to [facility] on this date and informed them that patient would be going to [facility] then to to [facility].
--- NOTE | 2019-10-13 07:24 | NUR ---
PHYSICAL THERAPY CO-SIGN I approve of the Physical Therapy notes written above. Emmie Soler PT
--- NOTE | 2019-10-13 07:45 | NUR ---
OCCUPATIONAL THERAPY CO-SIGN I approve of the Occupational Therapy notes written above. Xi Cadet, OTR/L
== END 2019-10-12 09:33 | disposition short-term general hospital (02) | DRG 383 ==
LOC: ED 14:25 → EDHOLD 15:54 → 4E 15:54
PROVIDERS: Hospitalist; Nurse Practitioner Family; ADMIT Internal Medicine
PROC: 0HBRXZZ Excision of Toe Nail, External Approach (ICD-10-PCS; principal; 2019-10-06)
PROC: 0HBRXZZ Excision of Toe Nail, External Approach (ICD-10-PCS; 2019-10-06)
PROC: 0HBRXZZ Excision of Toe Nail, External Approach (ICD-10-PCS; 2019-10-06)
PROC: 0HBRXZZ Excision of Toe Nail, External Approach (ICD-10-PCS; 2019-10-06)
PROC: 0HBRXZZ Excision of Toe Nail, External Approach (ICD-10-PCS; 2019-10-06)
DX: L03.116 Cellulitis of left lower limb (principal); S81.802A Unspecified open wound, left lower leg, initial encounter; N17.9 Acute kidney failure, unspecified; B35.1 Tinea unguium; E46 Unspecified protein-calorie malnutrition; I10 Essential (primary) hypertension; I73.9 Peripheral vascular disease, unspecified; D50.9 Iron deficiency anemia, unspecified; R62.7 Adult failure to thrive; K21.0 Gastro-esophageal reflux disease with esophagitis; L03.115 Cellulitis of right lower limb; B96.89 Other specified bacterial agents as the cause of diseases classified elsewhere; B37.9 Candidiasis, unspecified; S81.801A Unspecified open wound, right lower leg, initial encounter; X58.XXXA Exposure to other specified factors, initial encounter; Z68.1 Body mass index [BMI] 19.9 or less, adult; Y93.89 Activity, other specified; Y92.89 Other specified places as the place of occurrence of the external cause; Y99.8 Other external cause status

== ENCOUNTER 2019-12-03 13:57 | Inpatient (IN) | payer MEDICAID ==
[~2019-12-03] VITALS: Ht 152.4 cm; Wt 58.3 kg
[~2019-12-03 13:57] MED LIST changes: +CEFDINIR300 MG PO; +CENTRUM SILVER1 EACH PO; +HYDROCODONE-AC1 EAC1 PO; +OMEPRAZOLE40 MG PO; +TERBINAFINE250 MG PO; +VITAMIN D325 MCG PO
[2019-12-03 14:03] VITALS: BP 117/80
[2019-12-03 14:43] LABS: BASO % 0.4 % (0.0-1.0); EOS # 0.4 10*3/uL (0.0-0.4); EOS % 5.2 % (1.0-4.0); HEMATOCRIT 29.5 % (37.0-47.0); LYMPH # 2.1 10*3/uL (1.3-4.4); LYMPH % 25.8 % (27.0-41.0); MEAN CELL VOLUME 93.1 fl (81.0-99.0); MEAN CORPUSCULAR HGB CONC 31.2 g/dl (33.0-37.0); MEAN PLATELET VOLUME 8.6 fl (9.6-12.3); MONO # 0.6 10*3/uL (0.1-1.0); MONO % 7.7 % (3.0-9.0); NEUT # 4.9 10*3/uL (2.3-7.9); NEUT % 59.9 % (47.0-73.0); PLATELET COUNT AUTOMATED 332 10*3/uL (130-400); RED BLOOD COUNT 3.17 10*6/uL (4.10-5.10); RED CELL DISTRI WIDTH 15.1 % (0-14.5); WHITE BLOOD COUNT 8.1 10*3/uL (4.8-10.8)
[2019-12-03 14:47] LABS: BILIRUBIN NEGATIVE (NEGATIVE); BLOOD NEGATIVE (NEGATIVE); CLARITY CLEAR (CLEAR); COLOR YELLOW (YELLOW); GLUCOSE NEGATIVE (NEGATIVE); KETONE NEGATIVE (NEGATIVE); SPECIFIC GRAVITY 1.005 (1.005-1.030)
[2019-12-03 14:48] LABS: LEUKO ESTERASE NEGATIVE (NEGATIVE); NITRITE NEGATIVE (NEGATIVE); UROBILINOGEN 0.2 E.U./dl (0.2-1.0)
[2019-12-03 14:53] LABS: BACTERIA TRACE; EPITHELIAL CELLS 0-2; RBC 0-2 rbc/hpf (0-2); WBC 0-2 wbc/hpf (0-5)
[2019-12-03 14:54] LABS: MUCOUS TRACE
[2019-12-03 14:55] LABS: ACT PARTIAL THROMBO TIME 26.8 SECONDS (20.0-32.1); INTERNATIONAL NORM RATIO 0.9 (2.0-3.5)
[2019-12-03 14:58] LABS: ALBUMIN 2.9 gm/dl (3.1-4.5); ALKALINE PHOSPHATASE 81 U/L (45-117); BUN 21 mg/dl (7-24); CHLORIDE 106 mmol/L (98-107); CREATININE 0.74 mg/dL (0.55-1.02); LIPASE 94 U/L (73-393); SGOT/AST 12 IU/L (3-35); SGPT/ALT 9 U/L (12-78); SODIUM 136 mmol/L (136-145); TOTAL PROTEIN 6.6 gm/dL (6.4-8.2)
[2019-12-03 15:01] LABS: TROPONIN I < 0.015 ng/ml (<0.045)
[2019-12-03 17:15] VITALS: BP 139/56
[2019-12-03 20:00] VITALS: BP 140/61
[2019-12-04] VITALS: BP 128/60
[2019-12-04 08:00] VITALS: BP 137/59
[2019-12-04 12:00] VITALS: BP 129/58
[2019-12-04 16:00] VITALS: BP 116/48
[2019-12-04 20:00] VITALS: BP 116/63
[2019-12-05] VITALS: BP 120/51
[2019-12-05 08:00] VITALS: BP 135/62
[2019-12-05 12:00] VITALS: BP 115/54
[2019-12-05 16:00] VITALS: BP 118/52
[2019-12-05 20:00] VITALS: BP 111/51
[2019-12-06] VITALS: BP 115/47
[2019-12-06 06:09] LABS: BUN 14 mg/dl (7-24); CHLORIDE 108 mmol/L (98-107); CREATININE 0.74 mg/dL (0.55-1.02); POTASSIUM 3.9 mmol/L (3.5-5.1); SODIUM 140 mmol/L (136-145)
[2019-12-06 08:00] VITALS: BP 129/64
[2019-12-06 12:00] VITALS: BP 139/65
[2019-12-06 16:00] VITALS: BP 128/72
[2019-12-06] MEDS ORDERED: DOXYCYCLINE100 M3 PO (16:59)
[2019-12-06 20:00] VITALS: BP 125/51
[2019-12-07] VITALS: BP 120/74
[2019-12-07 08:00] VITALS: BP 146/69
[2019-12-07 13:00] VITALS: BP 133/61
[2019-12-07 16:00] VITALS: BP 123/62
[2019-12-07 20:00] VITALS: BP 113/54
[2019-12-08] VITALS: BP 134/60
[2019-12-08 08:00] VITALS: BP 130/56
[2019-12-08 12:00] VITALS: BP 114/76
[2019-12-08 16:00] VITALS: BP 116/56
[2019-12-08 20:00] VITALS: BP 104/46
[2019-12-09] VITALS: BP 149/63
[2019-12-09 08:00] VITALS: BP 157/66
[2019-12-09] MEDS ORDERED: TYLENOL EXTRA500 M2 PO (10:26)
[2019-12-09] MEDS ORDERED: DOXYCYCLINE100 M3 PO (10:29)
[2019-12-09 12:00] VITALS: BP 129/64
== END 2019-12-09 18:24 | disposition other institution (70) | DRG 383 ==
LOC: ED 13:57 → 5E 16:40 → EDHOLD 16:40 → 5E 16:41
PROVIDERS: Nurse Practitioner Family; ADMIT Internal Medicine
DX: L03.116 Cellulitis of left lower limb (principal); L03.115 Cellulitis of right lower limb; R62.7 Adult failure to thrive; I10 Essential (primary) hypertension; E55.9 Vitamin D deficiency, unspecified; Z20.828 Contact with and (suspected) exposure to other viral communicable diseases; K21.0 Gastro-esophageal reflux disease with esophagitis; D50.9 Iron deficiency anemia, unspecified; B35.1 Tinea unguium; L97.929 Non-pressure chronic ulcer of unspecified part of left lower leg with unspecified severity; I87.8 Other specified disorders of veins; L30.9 Dermatitis, unspecified; E44.1 Mild protein-calorie malnutrition

== ENCOUNTER 2020-09-13 14:44 | Emergency (ER) | payer MEDICAID ==
[~2020-09-13] VITALS: Ht 167.6 cm; Wt 63.5 kg
[~2020-09-13 14:44] MED LIST changes: +DOXYCYCLINE100 M3 PO; +TYLENOL EXTRA500 M2 PO
== END 2020-09-13 15:25 | disposition home or self-care (01) ==
LOC: ED 14:44
DX: Z04.3 Encounter for examination and observation following other accident (principal); Z79.899 Other long term (current) drug therapy; W19.XXXA Unspecified fall, initial encounter; Y93.89 Activity, other specified; Y92.89 Other specified places as the place of occurrence of the external cause; Y99.8 Other external cause status

== ENCOUNTER 2020-09-14 21:16 | Inpatient (IN) | payer MEDICAID ==
[~2020-09-14] VITALS: Ht 167.6 cm; Wt 65.0 kg
[2020-09-14 21:22] VITALS: BP 158/71
[2020-09-14 21:48] LABS: HEMATOCRIT 33.3 % (37.0-47.0); MEAN CELL VOLUME 95.1 fl (81.0-99.0); MEAN CORPUSCULAR HGB 31.4 pg (27.0-31.0); MEAN PLATELET VOLUME 9.1 fl (9.6-12.3); PLATELET COUNT AUTOMATED 202 10*3/uL (130-400); RED CELL DISTRI WIDTH 12.6 % (0-14.5); WHITE BLOOD COUNT 12.4 10*3/uL (4.8-10.8)
[2020-09-14 22:03] LABS: ALBUMIN 2.9 gm/dl (3.1-4.5); ALKALINE PHOSPHATASE 122 U/L (45-117); BUN 30 mg/dl (7-24); CHLORIDE 104 mmol/L (98-107); CREATININE 1.03 mg/dL (0.55-1.02); LIPASE 85 U/L (73-393); POTASSIUM 2.9 mmol/L (3.5-5.1); SGOT/AST 74 IU/L (3-35); SGPT/ALT 59 U/L (12-78); SODIUM 136 mmol/L (136-145); TOTAL PROTEIN 6.8 gm/dL (6.4-8.2)
[2020-09-14 22:04] LABS: CPK 159 U/L (26-192)
[2020-09-14 22:09] LABS: PLATELET SUFFICIENCY NORMAL (NORMAL); TOTAL CELLS COUNTED 100 #CELLS
[2020-09-14 22:11] LABS: BILIRUBIN Negative (Negative); BLOOD 2+ (Negative); CLARITY Cloudy (Clear); COLOR Yellow (Yellow); GLUCOSE Negative (Negative); KETONE Negative (Negative); LEUKO ESTERASE 2+ (Negative); NITRITE Positive (Negative); PH 5.5 (4.5-8.0); SPECIFIC GRAVITY 1.015 (1.001-1.030); UROBILINOGEN 0.2 E.U./dl (0.0-1.0)
[2020-09-14 22:16] VITALS: BP 125/67
[2020-09-14 22:46] LABS: WBC 31-40 wbc/hpf (0-5)
[2020-09-14 22:47] LABS: BACTERIA 2+
[2020-09-14 23:40] VITALS: BP 97/54
[2020-09-14 23:57] VITALS: BP 93/60
[2020-09-15 01:02] VITALS: BP 121/57
[2020-09-15] MEDS ORDERED: ASPIRIN ADULT L81 M1 PO (02:26)
[2020-09-15] MEDS ORDERED: LIPITOR20 MG PO (02:27)
[2020-09-15] MEDS ORDERED: PLAVIX75 M1 PO (02:30)
[2020-09-15] MEDS ORDERED: FAMOTIDINE40 MG PO (02:31)
[2020-09-15] MEDS ORDERED: FLORASTOR250 MG PO (02:32)
[2020-09-15 06:59] LABS: HEMATOCRIT 33.5 % (37.0-47.0); MEAN CELL VOLUME 96.8 fl (81.0-99.0); MEAN CORPUSCULAR HGB 31.8 pg (27.0-31.0); MEAN CORPUSCULAR HGB CONC 32.8 g/dl (33.0-37.0); MEAN PLATELET VOLUME 9.6 fl (9.6-12.3); PLATELET COUNT AUTOMATED 230 10*3/uL (130-400); RED BLOOD COUNT 3.46 10*6/uL (4.10-5.10); RED CELL DISTRI WIDTH 12.8 % (0-14.5); WHITE BLOOD COUNT 18.4 10*3/uL (4.8-10.8)
[2020-09-15 07:22] LABS: PLATELET SUFFICIENCY NORMAL (NORMAL); TOTAL CELLS COUNTED 100 #CELLS; TOXIC GRANULATION SLIGHT
[2020-09-15 07:23] LABS: OVALOCYTES FEW
[2020-09-15 07:25] LABS: ALBUMIN 2.8 gm/dl (3.1-4.5); ALKALINE PHOSPHATASE 117 U/L (45-117); BUN 25 mg/dl (7-24); CHLORIDE 104 mmol/L (98-107); CREATININE 0.96 mg/dL (0.55-1.02); SGOT/AST 49 IU/L (3-35); SGPT/ALT 52 U/L (12-78); SODIUM 136 mmol/L (136-145)
[2020-09-15 07:27] LABS: POTASSIUM 4.1 mmol/L (3.5-5.1)
[2020-09-15 08:00] VITALS: BP 143/75
[2020-09-15 12:00] VITALS: BP 152/63
[2020-09-15 16:00] VITALS: BP 158/66
[2020-09-15 20:00] VITALS: BP 141/70
[2020-09-16] VITALS: BP 139/65
[2020-09-16 08:00] VITALS: BP 147/75
[2020-09-16 12:00] VITALS: BP 148/80
[2020-09-16 16:00] VITALS: BP 167/70
[2020-09-16 20:00] VITALS: BP 124/56
[2020-09-17] VITALS: BP 112/53
[2020-09-17 08:28] VITALS: BP 137/72
[2020-09-17 10:56] VITALS: BP 133/38
[2020-09-17 15:18] VITALS: BP 123/59
[2020-09-17 20:00] VITALS: BP 146/68
[2020-09-18] VITALS: BP 153/66
[2020-09-18 06:28] LABS: BASO % 0.2 % (0.0-1.0); EOS % 0.3 % (1.0-4.0); HEMATOCRIT 28.1 % (37.0-47.0); LYMPH # 0.8 10*3/uL (1.3-4.4); LYMPH % 6.7 % (27.0-41.0); MEAN CELL VOLUME 96.2 fl (81.0-99.0); MEAN CORPUSCULAR HGB 31.8 pg (27.0-31.0); MEAN CORPUSCULAR HGB CONC 33.1 g/dl (33.0-37.0); MEAN PLATELET VOLUME 9.7 fl (9.6-12.3); MONO # 0.7 10*3/uL (0.1-1.0); MONO % 5.9 % (3.0-9.0); NEUT # 10.4 10*3/uL (2.3-7.9); NEUT % 85.6 % (47.0-73.0); PLATELET COUNT AUTOMATED 231 10*3/uL (130-400); RED BLOOD COUNT 2.92 10*6/uL (4.10-5.10); WHITE BLOOD COUNT 12.2 10*3/uL (4.8-10.8)
[2020-09-18 06:47] LABS: BUN 12 mg/dl (7-24); CHLORIDE 108 mmol/L (98-107); CREATININE 0.71 mg/dL (0.55-1.02); POTASSIUM 3.1 mmol/L (3.5-5.1); SODIUM 138 mmol/L (136-145)
[2020-09-18 08:00] VITALS: BP 150/66
[2020-09-18 12:00] VITALS: BP 148/68
[2020-09-18 16:00] VITALS: BP 154/69
[2020-09-18 20:00] VITALS: BP 129/63
[2020-09-19] VITALS: BP 129/67
[2020-09-19 06:48] LABS: BASO % 0.3 % (0.0-1.0); EOS # 0.2 10*3/uL (0.0-0.4); EOS % 1.3 % (1.0-4.0); HEMATOCRIT 29.4 % (37.0-47.0); LYMPH # 0.9 10*3/uL (1.3-4.4); LYMPH % 7.7 % (27.0-41.0); MEAN CELL VOLUME 95.8 fl (81.0-99.0); MEAN CORPUSCULAR HGB 31.6 pg (27.0-31.0); MEAN PLATELET VOLUME 9.4 fl (9.6-12.3); MONO # 0.8 10*3/uL (0.1-1.0); MONO % 6.5 % (3.0-9.0); NEUT # 9.6 10*3/uL (2.3-7.9); NEUT % 82.1 % (47.0-73.0); PLATELET COUNT AUTOMATED 250 10*3/uL (130-400); RED BLOOD COUNT 3.07 10*6/uL (4.10-5.10); WHITE BLOOD COUNT 11.7 10*3/uL (4.8-10.8)
[2020-09-19 07:22] LABS: BUN 11 mg/dl (7-24); CHLORIDE 107 mmol/L (98-107); CREATININE 0.65 mg/dL (0.55-1.02); POTASSIUM 3.4 mmol/L (3.5-5.1); SODIUM 136 mmol/L (136-145)
[2020-09-19 08:00] VITALS: BP 151/67
[2020-09-19 08:50] VITALS: BP 120/80
[2020-09-19 12:00] VITALS: BP 152/68
[2020-09-19 16:00] VITALS: BP 151/64
[2020-09-19 20:00] VITALS: BP 148/79
[2020-09-20] VITALS: BP 158/71
[2020-09-20 07:58] VITALS: BP 138/78
[2020-09-20] MEDS ORDERED: METOPROLOL SUCC50 M1 PO (08:19)
[2020-09-20] MEDS ORDERED: ERTAPENEM1 GM IV (08:19)
[2020-09-20 13:00] VITALS: BP 147/75
== END 2020-09-20 13:12 | DRG 720 ==
LOC: ED 21:16 → EDHOLD 23:56 → 5E 23:56
PROVIDERS: Hospitalist; Nurse Practitioner; ADMIT Internal Medicine; ATTEND Internal Medicine
PROC: 05HB33Z Insertion of Infusion Device into Right Basilic Vein, Percutaneous Approach (ICD-10-PCS; principal; 2020-09-20)
DX: A41.51 Sepsis due to Escherichia coli [E. coli] (principal); K29.00 Acute gastritis without bleeding; I47.1 Supraventricular tachycardia; N12 Tubulo-interstitial nephritis, not specified as acute or chronic; I73.9 Peripheral vascular disease, unspecified; R62.7 Adult failure to thrive; K21.9 Gastro-esophageal reflux disease without esophagitis; R65.20 Severe sepsis without septic shock; G93.40 Encephalopathy, unspecified; E78.2 Mixed hyperlipidemia; Z16.12 Extended spectrum beta lactamase (ESBL) resistance; Z20.822 Contact with and (suspected) exposure to COVID-19; I11.9 Hypertensive heart disease without heart failure; I08.1 Rheumatic disorders of both mitral and tricuspid valves; E86.0 Dehydration; E87.6 Hypokalemia; Z79.02 Long term (current) use of antithrombotics/antiplatelets; Z79.82 Long term (current) use of aspirin; Z79.899 Other long term (current) drug therapy; Z68.23 Body mass index [BMI] 23.0-23.9, adult; E44.1 Mild protein-calorie malnutrition; J96.10 Chronic respiratory failure, unspecified whether with hypoxia or hypercapnia

== ENCOUNTER → 2020-10-26 | Outpatient (CLI) | payer MEDICAID ==
[~2020-10-26] MED LIST changes: +ASPIRIN ADULT L81 M1 PO; +ERTAPENEM1 GM IV; +FAMOTIDINE40 MG PO; +FLORASTOR250 MG PO; +LIPITOR20 MG PO; +METOPROLOL SUCC50 M1 PO; +PLAVIX75 M1 PO
== END | disposition home or self-care (01) ==
LOC: CT 07:50
PROVIDERS: ATTEND Urology
DX: K80.20 Calculus of gallbladder without cholecystitis without obstruction (principal); K57.30 Diverticulosis of large intestine without perforation or abscess without bleeding; I70.0 Atherosclerosis of aorta; D25.9 Leiomyoma of uterus, unspecified; M51.36 Other intervertebral disc degeneration, lumbar region

== ENCOUNTER 2023-11-26 05:12 | Emergency (ER) | payer MEDICAID ==
[~2023-11-26] VITALS: Ht 160 cm; Wt 54.2 kg
[2023-11-26] MEDS ORDERED: LASIX20 MG PO (05:37)
[2023-11-26] MEDS ORDERED: GUAIFENESI100 MG/56 PO (05:37)
[2023-11-26] MEDS ORDERED: AMLODIPINE BES2.5 MG PO (05:40)
[2023-11-26] MEDS ORDERED: APAP500 MG PO (05:42)
[2023-11-26] MEDS ORDERED: ACETAMINOPHEN500 M4 PO (05:43)
[2023-11-26] MEDS ORDERED: FEOSOL325 MG PO (05:44)
[2023-11-26 05:59] LABS: BILIRUBIN Negative (Negative); BLOOD Negative (Negative); CLARITY Clear (Clear); COLOR Yellow (Yellow); GLUCOSE Negative (Negative); KETONE Negative (Negative); LEUKO ESTERASE Negative (Negative); NITRITE Negative (Negative); UROBILINOGEN 0.2 E.U./dl (0.0-1.0)
[2023-11-26 06:07] LABS: BASO % 0.3 % (0.0-1.0); EOS % 0.1 % (1.0-4.0); HEMATOCRIT 38.6 % (37.0-47.0); LYMPH # 0.9 10*3/uL (1.3-4.4); LYMPH % 9.9 % (27.0-41.0); MEAN CELL VOLUME 98.5 fl (81.0-99.0); MEAN CORPUSCULAR HGB 33.4 pg (27.0-31.0); MEAN CORPUSCULAR HGB CONC 33.9 g/dl (33.0-37.0); MEAN PLATELET VOLUME 9.4 fl (9.6-12.3); MONO # 0.3 10*3/uL (0.1-1.0); MONO % 2.6 % (3.0-9.0); NEUT # 8.1 10*3/uL (2.3-7.9); NEUT % 85.1 % (47.0-73.0); PLATELET COUNT AUTOMATED 269 10*3/uL (130-400); RED BLOOD COUNT 3.92 10*6/uL (4.10-5.10); WHITE BLOOD COUNT 9.5 10*3/uL (4.8-10.8)
[2023-11-26 06:10] LABS: ALKALINE PHOSPHATASE 87 U/L (46-116); BUN 18 mg/dl (9-23); CHLORIDE 102 mmol/L (98-107); POTASSIUM 3.9 mmol/L (3.4-5.1); SGPT/ALT 7 U/L (5-49); TOTAL PROTEIN 7.5 gm/dL (6.0-8.0)
[2023-11-26 06:16] LABS: EPITHELIAL CELLS 0-2; RBC 0-2 rbc/hpf (0-2); WBC 0-2 wbc/hpf (0-5)
== END 2023-11-26 14:32 | disposition short-term general hospital (02) ==
LOC: ED 05:12
PROVIDERS: Internal Medicine
DX: R19.7 Diarrhea, unspecified (principal); R53.1 Weakness; R41.82 Altered mental status, unspecified; I10 Essential (primary) hypertension; E78.00 Pure hypercholesterolemia, unspecified; D64.9 Anemia, unspecified; K21.9 Gastro-esophageal reflux disease without esophagitis; F03.90 Unspecified dementia, unspecified severity, without behavioral disturbance, psychotic disturbance, mood disturbance, and anxiety

== ENCOUNTER 2024-01-29 18:54 | Emergency (ER) | payer MEDICAID ==
[~2024-01-29 18:54] MED LIST changes: +ACETAMINOPHEN500 M4 PO; +AMLODIPINE BES2.5 MG PO; +APAP500 MG PO; +FEOSOL325 MG PO; +GUAIFENESI100 MG/56 PO; +LASIX20 MG PO
[2024-01-29 19:25] LABS: BASO % 0.4 % (0.0-1.0); EOS # 0.3 10*3/uL (0.0-0.4); EOS % 3.1 % (1.0-4.0); HEMATOCRIT 32.6 % (37.0-47.0); LYMPH # 1.4 10*3/uL (1.3-4.4); MEAN CELL VOLUME 105.2 fl (81.0-99.0); MEAN CORPUSCULAR HGB 33.5 pg (27.0-31.0); MEAN CORPUSCULAR HGB CONC 31.9 g/dl (33.0-37.0); MEAN PLATELET VOLUME 9.2 fl (9.6-12.3); MONO # 0.7 10*3/uL (0.1-1.0); MONO % 8.7 % (3.0-9.0); NEUT # 5.7 10*3/uL (2.3-7.9); NEUT % 70.2 % (47.0-73.0); PLATELET COUNT AUTOMATED 231 10*3/uL (130-400); RED CELL DISTRI WIDTH 12.3 % (0-14.5); WHITE BLOOD COUNT 8.1 10*3/uL (4.8-10.8)
[2024-01-29 19:42] LABS: ALKALINE PHOSPHATASE 80 U/L (46-116); BUN 20 mg/dl (9-23); CHLORIDE 107 mmol/L (98-107); POTASSIUM 4.5 mmol/L (3.4-5.1)
[2024-01-29 19:44] LABS: SGPT/ALT < 7 U/L (5-49)
== END 2024-01-29 22:08 ==
LOC: ED 18:54
PROVIDERS: Internal Medicine
DX: I47.19 Other supraventricular tachycardia (principal); D53.9 Nutritional anemia, unspecified; I10 Essential (primary) hypertension; E78.00 Pure hypercholesterolemia, unspecified; K21.9 Gastro-esophageal reflux disease without esophagitis; F03.90 Unspecified dementia, unspecified severity, without behavioral disturbance, psychotic disturbance, mood disturbance, and anxiety